=== PATIENT | female | born 1935 | race Caucasian/White ===

== ENCOUNTER 2024-01-17 19:47 | Inpatient (IN) | payer MEDICARE, OTHER, SELFPAY ==
[2024-01-17 17:13] VITALS: BP 162/91; BMI 28.3
[2024-01-17 17:31] LABS: % Eosinophils 8.9 % (0-6); % Immature Granulocytes 0.7 % (0-0.5); % Lymphocytes 16.6 % (20.5-51.1); % Neutrophils 65.8 % (42.2-75.2); Absolute Basophils 0.1 10^3/uL (0-0.2); Absolute Eosinophils 0.9 10^3/uL (0-0.7); Absolute Immature Granulocytes 0.1 10^3/uL (0-0.05); Absolute Lymphocytes 1.7 10^3/uL (1.2-3.4); Absolute Monocytes 0.7 10^3/uL (0.1-0.6); Absolute Neutrophils 6.5 10^3/uL (1.4-6.5); Hematocrit 32.9 % (37.0-47.0); Hemoglobin 10.2 g/dL (12.0-16.0); Mean Corpuscular Volume 90.4 fL (81.0-99.0); Mean Platelet Volume 9.2 fL (7.4-10.4); Nucleated Red Blood Cells % 0 %; Platelet Count 309 10^3/uL (130-400); Red Blood Cell Count 3.64 10^6/uL (4.20-5.40); Red Cell Dist. Width 13.9 % (11.5-14.5); White Blood Cell Count 9.9 10^3/uL (4.8-10.8)
--- NOTE | 2024-01-17 17:40 | ED.GENMED ---
History of Present Illness
General
Chief Complaint: Skin Problem
Time Seen by Provider: 01/17/24 17:40
History of Present Illness
History of Present Illness:
TIME OF INITIAL ENCOUNTER: 5:45 PM
HPI: Patient presents due to concerns for cellulitis to the lower extremities. She had been on Zyvox. The daughter at bedside states that the PMD at [facility] noted worsening of the symptoms and sent her here for further evaluation and
management.
EXAM:
GENERAL: Appears in no distress
HEENT: Moist oral mucosa
CARDIOVASCULAR: Tachycardic heart rate with irregular rhythm
PULMONARY: No respiratory distress, breathing is nonlabored, equal and clear breath sounds
ABDOMEN: Soft and nontender with no peritoneal signs
NEUROLOGIC: The patient has evidence of dementia, not oriented to month or place, strength is equal in all extremities
EXTREMITIES: She has erythema and warmth extending superiorly to the knees bilaterally
PYSCHIATRIC: Very limited historian, poor insight and judgment
NUMBER AND COMPLEXITY OF PROBLEMS ADDRESSED AT THE ENCOUNTER
� Chronic conditions affecting care: Dementia, high blood pressure, hyperlipidemia, CKD, IDDM, skin cancer (had basal cell carcinoma removed)
� Acute Exacerbation and/or Progression of Chronic Illness: This is an acute problem
� Differential Diagnosis includes: Cellulitis, bacteremia, sepsis, failure of outpatient management
AMOUNT AND/OR COMPLEXITY OF DATA TO BE REVIEWED AND ANALYZED
� I performed an independent evaluation of and my interpretation is:
EKG: A-fib 113, normal axis, nonspecific ST abnormality
CT:
X-rays:
Laboratory Studies: White count 9.9, hemoglobin 10.2, creatinine 1.1
Other:
� Review of other/old records: I reviewed records, the patient was admitted with A-fib with RVR in October 2022
� Clinical information was obtained by an independent historian: I reviewed the notes from [facility], the patient had been on Zyvox
� Prescriptions/Medications Considered but not given:
� Further testing considered but not performed:
RISK OF COMPLICATIONS AND/OR MORBIDITY OR MORTALITY OF PATIENT MANAGEMENT
� Social determinants of health affecting care: Resides at [facility]
� Discussion with other providers: Hospitalist for admission as patient has been failing outpatient management
� Escalation of care including admission/observation vs risk of discharge considered: The patient is already on Zyvox as an outpatient and has reportedly worsening lower extremity cellulitis now with progression up above the
knees. White count is normal and she is afebrile however she is tachycardic
ANY OTHER UPDATES:
Given the tachycardia�rapid atrial fibrillation, I have given her a one-time dose of diltiazem. I have also ordered vancomycin.
Past History
Past History
ED Past Medical History: HTN, Hypercholesterolemia, IDDM, Renal failure and Other (Dementia, aphasia)
ED Past Surgical History: None
Social History
Tobacco: Non-smoker
Alcohol: None
Drug: None
Living: half-way
Phy Exam
Physical Exam
Physical Exam:
See HPI
Course
Orders/Labs/Results
Orders:
Orders
01/17/24 17:13
Electrocardiogram (*1) Urgent
Reason for Study: Other
Other Reason for Exam: Possible Sepsis
Cardiac Monitoring- Treatment ONCE
EKG- Treatment ONCE
IV Insert/Care/Rem.- Treatment PRN
O2 Therapy [RESP] Urgent
Titrate/Wean O2 to maintain O2 sat greater than (%): 93
Special Instructions: TO MAINTAIN CONTINUOUS O2 SATS > OR = 93%
Pulse Ox/cont/shift [RESP] Urgent
Quantity: 1
Special Instructions: CONTINUOUS
01/17/24 17:18
Complete Blood Count/With Diff Urgent
Comprehensive Metabolic Panel Urgent
Lactic Acid Q4H
Comment: ON ICE, CANCEL 2ND ORDER IF FIRST LACTIC ACID LEVEL <2
01/17/24 17:53
Diltiazem HCl [Cardizem] 10 mg IV NOW STA
Vancomycin [Vancocin] 2,000 mg 0.9% Sodium Chloride 500 ml [Nss] 500 ml IV NOW
01/17/24 18:22
Blood Culture Q30M
EVY Source: Blood/Venous
Specimen Description:
Blood Culture Q30M
EVY Source: Blood/Venous
Specimen Description:
01/17/24 19:12
Admit/Transfer Patient As Directed
Co-Sign Provider:
Level of Care: Inpatient admission
Assign to:: Telemetry
Physician / Group: hospitalist
Diagnosis: cellulitis
Reason for Telemetry: Medication for Arrhythmia
Date to Stop Telemetry: 01/19/24
Time to Stop Telemetry: 11:00
Reason for Hospitalization: skin and soft tissue infection
Expected length of stay greater than two midnights?: Yes
ELOS- Estimated Length of Stay in days: 2
I certify the patient meets the requirements for IP care: Yes
PRN Pain Medication Management As Directed
May give lesser potent ordered pain med per pt: Yes
preference::
Protocol:: Medication orders for pain may be administered in a
manner that supports deferring to patient preference
when the pt is:
- Requesting an ordered lesser potent pain medication.
Least to most potent pain medications are defined
as: acetaminophen < NSAID < tramadol < opioids
(morphine, oxycodone, hydromorphone).
- Requesting a lesser dose of the same medication IF
ORDERED.
- Requesting a less intrusive route of administration
if both routes are prescribed by the provider (PO <
IV).
01/17/24 19:14
Code Status As Directed
Resuscitation Status: Do not resuscitate
Reached after discussion with pt or family/Healthcare POA: Yes
DNR Bracelet Application ONCE
01/19/24 11:00
DC Protocol for Telemetry ONCE
Abnormal Lab Results
01/17/24
17:18
RBC 3.64 L 10^6/uL
(4.20-5.40)
Hgb 10.2 L g/dL
(12.0-16.0)
Hct 32.9 L %
(37.0-47.0)
MCHC 31.0 L g/dL
(33.0-37.0)
Abs Immat Gran (auto) 0.1 H 10^3/uL
(0-0.05)
Absolute Monos (auto) 0.7 H 10^3/uL
(0.1-0.6)
Absolute Eos (auto) 0.9 H 10^3/uL
(0-0.7)
Immature Gran % 0.7 H %
(0-0.5)
Lymphocytes % 16.6 L %
(20.5-51.1)
Eosinophils % 8.9 H %
(0-6)
BUN 25 H mg/dl
(7-17)
Creatinine 1.1 H mg/dL
(0.6-1.0)
Glucose 247 H mg/dl
(70-99)
AST 37 H U/L
(14-36)
ALT 40 H U/L
(0-35)
Alkaline Phosphatase 169 H U/L
(38-126)
01/17/24 17:18
01/17/24 17:18
Vital Signs
Initial and Last Documented VS:
Initial Vital Signs
Temp Pulse Resp BP Pulse Ox
36.6 C 105 18 162/91 96
01/17/24 17:13 01/17/24 17:13 01/17/24 17:13 01/17/24 17:13 01/17/24 17:13
Last Documented Vital Signs
Temp Pulse Resp BP Pulse Ox
36.6 C 102 20 142/91 96
01/17/24 17:13 01/17/24 19:00 01/17/24 19:00 01/17/24 19:00 01/17/24 19:00
*Critical Care Note
Total Time (30-74mins, 75-104mins- exclusive of procedures): Not Applicable
ED Attending Note
-
Portions of this chart may have been created with voice recognition software.� Occasional wrong word or��sound alike� substitutions may have occurred due to the inherent limitations of voice recognition software.
Discharge Plan
Departure
Patient Disposition: Admit
Date of Disposition: 01/17/24
Time of Disposition: 18:29
Presentation/result/management discussed w/ accepting MD/DO: Hospitalist
Discharge Problem:
Cellulitis
Interventions
Interventions:
*Risk Screen - Suicide Last Done: 01/17/24 17:13
*General Assessment Last Done: 01/17/24 17:13
*Neglect/Abuse Screening Last Done: 01/17/24 17:13
*ED COVID-19 Vaccine History Last Done: 01/17/24 17:13
[2024-01-17 17:45] LABS: ALT (SGPT) 40 U/L (0-35); AST (SGOT) 37 U/L (14-36); Alkaline Phosphatase 169 U/L (38-126); Blood Urea Nitrogen 25 mg/dl (7-17); Calcium 8.9 mg/dl (8.4-10.2); Carbon Dioxide 25 mmol/L (22-30); Chloride 104 mmol/L (98-107); Estimated Creatinine Clearance 36 ml/min; Glucose 247 mg/dl (70-99); Potassium 4.3 mmol/L (3.5-5.1); Sodium 141 mmol/L (135-145); Total Bilirubin 0.4 mg/dl (0.2-1.3); Total Protein 7.1 g/dl (6.3-8.2); eGFR 48.63
[2024-01-17 18:00] VITALS: BP 137/76
[2024-01-17] MEDS: CARDIZEM 10 MG IV (18:21)
--- NOTE | 2024-01-17 18:55 | HPS.HSE ---
Family Physician
-
Family Physician: Jefe Kearney DO
Chief Complaint
-
Bilateral lower extremity swelling and redness.
History of Present Illness
This is 88-year-old female with past medical history significant for insulin-dependent diabetes, atrial fibrillation not currently on anticoagulation due to multiple falls, hypertension, dementia who presents to the emergency department with
bilateral lower extremity cellulitis with failure of outpatient antibiotics.
Patient with dementia unable to provide much history. Sent from assisted. Per records she was started on doxycycline on 01-07 for presumed bilateral lower extremity cellulitis. Initially listed for 5 days but appears to have continued the
course until today when she was switched to linezolid. Unclear whether any doses of linezolid actually received. Family denies history of recurrent hospitalizations for cellulitis. No known animal bites or insect bites. She arrived in ED with
afib RVR, and was afebrile.
In the ED her blood pressure was 162/91 with a pulse of 111, temperature was 97.9 with a respiratory of 18. White count was 9.9 with an unchanged globin and platelet count. ECG with AFIB rate 113, no acute ST / T wave changes. Chemistries were
within normal limits with a BUN of 25 and creatinine of 1.1. Glucose was 242. No anion gap. Lactic acid was 1.0. Given a single dose of diltiazem and started on IV vancomycin.
Medical History
Past Medical History
Past Medical History: Reports Arrhythmia (atrial fibrillation), Dementia, HTN and IDDM
Past Surgical History: Reports Other
Social History
Unable to obtain full social history at this time due to: Dementia
Tobacco: Non-smoker
Alcohol: None
Drug: None
Personal:
Living: [facility]
Employment: Retired
Family History
Family History: Not pertinent
Allergies / Home Medications
Allergies reflects when Allergies were last updated in [employer].
Home Medications with original date entered in [employer]
Allergy/Medication List:
Allergies
Allergy/AdvReac Type Severity Reaction Status Date / Time
Penicillins Allergy Unknown Verified 05/07/19 13:56
Home Medications
acetaminophen 325 mg tablet (Tylenol) 650 mg PO Q6HPRN PRN fever/mild pain 10/17/22
acetaminophen 500 mg tablet (Tylenol Extra Strength) 500 mg PO HS Pain 10/17/22
amlodipine 5 mg tablet 5 mg PO DAILY Blood Pressure 10/17/22
bisacodyl 10 mg rectal suppository (Dulcolax (bisacodyl)) 10 mg TN DAILYPRN PRN if no bm after mom 10/17/22
donepezil 10 mg tablet 10 mg PO HS Neurological Condition 10/17/22
insulin lispro 100 unit/mL subcutaneous pen (Humalog KwikPen (U-100) Insulin) 0 sliding scale dose SC AC Diabetes 10/17/22
magnesium hydroxide 400 mg/5 mL oral suspension (Milk of Magnesia) 2,400 mg PO [id number] PRN if no bm by third day 10/17/22
sodium phosphates 19 gram-7 gram/118 mL enema (Fleet Enema) 118 ml TN DAILYPRN PRN if no bm after dulcolax 10/17/22
therapeutic multivitamin 1 tab PO DAILY Supplement 10/17/22
ferrous sulfate 325 mg (65 mg iron) tablet (FeroSul) 325 mg PO DAILY 30 days #30 tabs 10/20/22
aspirin 81 mg tablet,delayed release 81 mg PO DAILY 01/17/24
insulin glargine 100 unit/mL (3 mL) subcutaneous pen (Lantus Solostar U-100 Insulin) 18 unit SC HS 01/17/24
metoprolol tartrate 25 mg tablet 25 mg PO QPM 01/17/24
Review of Systems
-
Unable to obtain full review of systems at this time due to: Dementia
History Source: Family
Constitutional: Reports No Symptoms
EENT: Reports No Symptoms
Respiratory: Reports No Symptoms
Cardiac: Reports No Symptoms
Abdomen/GI: Reports No Symptoms
: Reports No Symptoms
Musculoskeletal: Reports No Symptoms
Skin: Reports No Symptoms
Neurological: Reports No Symptoms
Endocrine: Reports No Symptoms
Hematologic/Lymphatic: Reports No Symptoms
Psych: Reports No Symptoms
Physical Exam
Vital Signs
Vital Signs
Temp Pulse Resp BP Pulse Ox
97.9 F 111 18 162/91 95
01/17/24 17:13 01/17/24 17:15 01/17/24 17:15 01/17/24 17:13 01/17/24 17:15
Physical Exam
General: Well Developed, Well Nourished, Comfortable and Conversant
HEENT: NormoCephalic, Anicteric, Moist mucous membranes and Atraumatic
Respiratory: Clear
Cardiac: S1/S2, Irregular Rhythm and Tachycardia
Breast: Deferred by me
GI: Soft, Non Tender, Normal Bowel Sounds and No Hepatosplenomegaly
Rectal: Deferred by Provider
Genito-urinary: Deferred by me
Musculoskeletal: No Clubbing, No Cyanosis, Edema, Left Lower Extremity and Edema, Right Lower Extremity
Skin: Warm and Rash (Bilateral LE erythema, edema and TTP. No focal collection. )
Neuro: Awake, Alert and Oriented (to person, knowns she's in the hospital and has been here before, aware year is the '20 somethings')
Hematologic/Lymphatic: No Lymphadenopathy
Psych: Calm
Laboratory Results
-
01/17/24 17:18
01/17/24 17:18
Laboratory Results
Lactic Acid Cancelled 01/17/24 21:15
Total Bilirubin 0.4 mg/dl (0.2-1.3) 01/17/24 17:18
AST 37 U/L (14-36) H 01/17/24 17:18
ALT 40 U/L (0-35) H 01/17/24 17:18
Alkaline Phosphatase 169 U/L (38-126) H 01/17/24 17:18
Data Reviewed
-
Medical Tests (Nuc Med, Echo, EKG etc): Image Personally Visualized and interpreted
Lab Data: Labs Reviewed by me
Old Records: Reviewed
Impression/Plan
-
IMPRESSION:
88 y.o with h/o diabetes here with failure of outpatient treatment for john LE cellulitis and with AFIB RVR.
PLAN:
1. Cellulitis - On abx since 01/07. History says doxycycline then linezolid started today. Extensive erythema in the legs with induration and tenderness to palpation. Nails and some skin excoriations possibly source. No obvious ulcerations or
evidence of deep tissue infection.
- admit to telemetry
- IV vancomycin for now
- blood cultures if febrile
- ID consultation
- bilateral LE u/s to rule out DVT (less likely but remains in differential)
2. AFIB - AFIB RVR in setting of worsening infection. Rate controlled with 10mg iv diltiazem
- continue metoprolol 25mg q pm
- prn diltiazem iv for rates > 120
- not on AC due to falls, continue aspirin 81
3. DM II - hyperglycemia, no DKA
- lantus 18 hs
- sliding scale achs
- 500 ml NS x1
4. Dementia
- continue donepezil
DVT PPX - heparin sq
Code status - DNR
[2024-01-17 19:00] VITALS: BP 142/91
[2024-01-17] MEDS: VANCOCIN 540 MG IV (20:53)
[2024-01-17] MEDS: NSS 500 IV (20:54)
[2024-01-17 20:58] VITALS: BP 165/78; BMI 28.4
--- NOTE | 2024-01-17 20:59 | PHA.VAN.IN ---
Assessment
- Assessment
Renal Function: Appears elevated from baseline (10/20/22 BASELINE SCR: 1.0)
Concomitant Antimicrobials: NONE
- Previous Dosing Experience
Previous Regimen: NONE
AUC Dosing Plan
- Dosing Variables
Dosing Weight (kg): 74.7
Dosing CrCl (ml/min): 36
Vd coefficient (L/kg): 0.7
- Empiric Dosing
Initial / Loading Dose: 2GM
Maintenance Regimen: 750MG IV Q24H
Estimated AUC (mcg*h/mL): 426
Estimated Peak (mcg*h/mL): 25.6
Estimated Trough (mcg/ml): 11.6
Estimated Half Life (H): 20.2
Pharmacokinetics Vancomycin I
- -
Patient Age: 88
Patient Sex: Female
Vancomycin Day #: 1
Indication: Skin And Soft Tissue (B\\L LLE CELLULITIS)
Requesting Provider: SUE
Pertinent Antimicrobial Allergies:
Allergies
Penicillins Allergy (Verified 01/17/24 19:13)
Unknown
Height / Weight:
Height 5 ft 4 in
Actual Weight 74.871 kg
Pertinent Past Medical History: DM; FAILED OUTPT TX W/DOXYCYCLINE/LINEZOLID
- Vital Signs / Lab Results
Temp Pulse Resp BP Pulse Ox
97.6 F 97 18 165/78 96
01/17/24 20:58 01/17/24 20:58 01/17/24 20:58 01/17/24 20:58 01/17/24 20:58
Lab Results - Hematology
01/17/24
17:18
WBC 9.9
Lab Results - Chemistry
01/17/24
17:18
BUN 25 H
Creatinine 1.1 H
Estimated Creat Clear 36
Albumin 4.0
12/05/24 12/05/24
17:18 21:15
Lactic Acid 1.0 Cancelled
--- NOTE | 2024-01-17 21:00 | PTCARENOTE ---
Patient admitted from ED. Patient AAO x1, forgetful, with hx of dementia, on RA. Bed alarm is on. Patient has call douglas within reach.
[2024-01-17] MEDS: ARICEPT 10 MG PO (21:01)
[2024-01-17 21:15] LABS: Glucose - Point of Care 222 mg/dl (70-99)
[2024-01-17] MEDS: TYLENOL 650 MG PO (21:30)
[2024-01-17] MEDS: LOPRESSOR 25 MG PO (21:30)
[2024-01-17] MEDS: LANTUS 0.18 UNITS SC (22:20)
[2024-01-17 23:21] VITALS: BP 153/64
--- NOTE | 2024-01-18 00:16 | PTCARENOTE ---
Patient woke up confused, bed alarm activated, patient stating 'I can't breathe.' Patient placed on 2LNC sating 94%, RR 20, HR 85. Patient has hx dementia and is anxious. Placed on medsitter. Patient is now more calm and resting in bed comfortably.
Will continue to monitor.
[2024-01-18] MEDS: DUONEB 3 ML INH (02:44)
[2024-01-18 03:38] VITALS: BP 122/92
[2024-01-18] MEDS: LASIX 20 MG IV ×2 (04:10→13:37)
--- NOTE | 2024-01-18 04:47 | W.PN.UPDATE ---
Update Note
Progress Note Update
Per nursing new onset wheezing with diminished lungs. 86-87% on RA. Rx Duoneb - minimal improvement, continues to remain SOB and wheezing, saturating 99 on 2L.�
Rx CXR - Discussed with Dr. Nunez -�possible right pleural effusion. Rx 20mg IV Lasix - patient reports improved symptoms.
[2024-01-18] MEDS: VANCOCIN 150 IV (05:32)
[2024-01-18 05:33] VITALS: BMI 28.2
[2024-01-18 07:00] VITALS: BP 160/72
[2024-01-18 07:53] LABS: Hematocrit 31.9 % (37.0-47.0); Mean Corp Hgb Conc. 31.3 g/dL (33.0-37.0); Mean Corpuscular Hgb 28.4 pg (27.0-31.0); Mean Corpuscular Volume 90.6 fL (81.0-99.0); Mean Platelet Volume 9.3 fL (7.4-10.4); Platelet Count 305 10^3/uL (130-400); Red Blood Cell Count 3.52 10^6/uL (4.20-5.40); Red Cell Dist. Width 14.1 % (11.5-14.5); White Blood Cell Count 9.9 10^3/uL (4.8-10.8)
[2024-01-18 08:16] LABS: NT-proBNP 3610 pg/ml
[2024-01-18 08:40] LABS: Glucose - Point of Care 185 mg/dl (70-99)
[2024-01-18 08:47] LABS: Blood Urea Nitrogen 20 mg/dl (7-17); Calcium 8.4 mg/dl (8.4-10.2); Carbon Dioxide 26 mmol/L (22-30); Chloride 106 mmol/L (98-107); Estimated Creatinine Clearance 39 ml/min; Glucose 218 mg/dl (70-99); Potassium 4.6 mmol/L (3.5-5.1); Sodium 140 mmol/L (135-145); eGFR 54.53
[2024-01-18] MEDS: FEOSOL 325 MG PO (08:55)
[2024-01-18] MEDS: ASPIR LOW (ENTERIC COATED) 81 MG PO (08:55)
[2024-01-18] MEDS: NOVOLOG FLEXPEN-MODERATE RESISTANCE 1 UNITS SC (08:55)
[2024-01-18] MEDS: NORVASC 5 MG PO (08:55)
[2024-01-18 11:00] VITALS: BP 159/66
--- NOTE | 2024-01-18 11:04 | CON.ID ---
Consultation
-
Date/Time Consultation Requested: January 18, 2024 0229
Date/Time Consultation Performed: January 18, 2024 1100
Requesting Provider: Dr. Dami Robledo
Performing Provider: Dr. Kathrin Caputo
Reason for Consultation: Cellulitis
Chief Complaint / Past History
Chief Complaint
Both legs swelling and redness
History of Present Illness
88-year-old female with history of diabetes mellitus, atrial fibrillation, dementia who presented from long-term facility on January 16 due to progressive bilateral lower extremity edema and erythema. January 07 she was placed on doxycycline
without improvement. She was therefore sent to the hospital. Afebrile. Normal white count. Blood pressure elevated. Tachycardic. Patient A-fib with RVR. She is currently on vancomycin. Patient reports no fevers or chills. Today the legs
swelling and redness are much much improved. She feels well overall.
Past History
Additional Past Medical History:
Dementia
Hypertension
Diabetes mellitus
Atrial fibrillation
Allergy History:
Penicillins Allergy (Verified 01/17/24 19:13)
Unknown
Medications Reviewed: Yes
Current Antibiotics:
Vancomycin
Social History
Tobacco: Non-Smoker
Alcohol: None
Drug: None
Living: Jail
Family History
Family History: Not Pertinent
Review of Systems
Review of Systems
General: Negative Fever, Chills or Change in Appetite
Cardiovascular: Negative Chest Pain
Respiratory: Dyspnea (wheezing this morning.)
Gasteroenterology: Negative Nausea, Vomiting or Diarrhea
Genital / Urological: Negative Dysuria or Flank Pain
Endocrine: Negative Weakness
Neurological: Negative Dizziness
All systems: All other systems were reviewed and were negative
Vital Signs
Temp Pulse Resp BP Pulse Ox
97.8 F 63 18 160/72 93
01/18/24 07:00 01/18/24 08:55 01/18/24 07:00 01/18/24 08:55 01/18/24 07:00
Physical Exam
Physical Exam
Constitutional: No Acute Distress, Comfortable and Non-toxic
Eyes: No Conjunctival Hemorrhage and Sclera Anicteric
Cardiovascular: Regular Rate and S1/S2
Pulmonary: Rales (bibase)
Gastrointestinal: Non Tender and Normal Bowel Sounds
Extremities: Edema (BLE 1+ edema), Erythema (BLE minimal erythema improve with leg raisng) and Other (BLE skin very dry. Right lateral calf with superficial dry wound.)
Neurological: Awake and Alert
Lab / Diagnostic Study Results
01/18/24 07:19
01/18/24 07:19
Abs Immat Gran (auto) 0.1 10^3/uL (0-0.05) H 01/17/24 17:18
Absolute Neuts (auto) 6.5 10^3/uL (1.4-6.5) 01/17/24 17:18
Absolute Lymphs (auto) 1.7 10^3/uL (1.2-3.4) 01/17/24 17:18
Absolute Monos (auto) 0.7 10^3/uL (0.1-0.6) H 01/17/24 17:18
Absolute Basos (auto) 0.1 10^3/uL (0-0.2) 01/17/24 17:18
Immature Gran % 0.7 % (0-0.5) H 01/17/24 17:18
Neutrophils % 65.8 % (42.2-75.2) 01/17/24 17:18
Lymphocytes % 16.6 % (20.5-51.1) L 01/17/24 17:18
Monocytes % 7.0 % (1.7-9.3) 01/17/24 17:18
Eosinophils % 8.9 % (0-6) H 01/17/24 17:18
Basophils % 1.0 % (0-2) 01/17/24 17:18
Lactic Acid Cancelled 01/17/24 21:15
Microbiology Results
Micro:
01/17/24 21:04 Nasal Screen MRSA (PCR) - Pending
Nose
01/17/24 18:22 Blood Culture - Pending
Blood/Venous
01/17/24 18:22 Blood Culture - Pending
Blood/Venous
01/18/24 CXR: Cardiomegaly. Diffusely increased interstitial markings, most suggestive of interstitial pulmonary edema.
Assessment / Plan
# BLE edema/erythema due to acute CHF
- Improving after a dose of furosemide IV x 1
-NO evidence of cellulitis. BLE dependent erythema resolves with leg elevation.
-DC VANCOMYCIN.
- Elevate LE's.
-Moisturize dry skin
# Pulm edema/CHF
- CXR cardiomegaly with interstitial edema
-Management as per hospitalist.
ID will sign off.
--- NOTE | 2024-01-18 13:09 | W.PN.HOSP.TC ---
Today's Communication/Plan
-
Cardiology count
Assessment / Plan
Assessment / Plan
Impression.
87 years old who admitted for bilateral lower extremity cellulitis developed shortness of breath last night, seen by infectious disease, discontinued antibiotic and recommend treatment for CHF.
Assessment/plan
Acute CHF Exacerbation:
Patient has acute on chronic diastolic congestive heart failure
Patient presented with shortness of breath.
BNP level is elevated at 3610
Received one-time dose of Lasix 20 mg IV which shows improvement
Continue Daily weight.
Continue strict I's and O's.
Consulted cardiology.
Most recent echo done on 10/18/2022 shows :
Normal left ventricular size, wall thickness and systolic function. No regional
wall motion abnormalities are seen. LV ejection fraction is 55-60% by visual
assessment. Diastolic function indeterminate due to atrial fibrillation.
Normal right ventricular size and function.
Thickened mitral valve leaflets. Mitral annular calcification. Mild mitral
regurgitation.
Aortic sclerosis without stenosis. Mild aortic regurgitation.
Mild tricuspid regurgitation. Estimated pulmonary artery pressure of 35-40 mmHg
assuming a right atrial pressure of 3 mmHg.
No prior study available for comparison
Repeat echocardiogram pending.
Ordered Lasix 20 mg IV daily
Cellulitis ruled out.
- On abx since 01/07. History says doxycycline then linezolid started today. Extensive erythema in the legs with induration and tenderness to palpation. Nails and some skin excoriations possibly source. No obvious ulcerations or evidence of deep
tissue infection.
Seen by infectious disease.
Recommend to discontinue IV antibiotic
- bilateral LE u/s to rule out DVT (pending)
Atrial fibrillation with rapid ventricular rate.
Rate controlled with 10mg iv diltiazem
- continue metoprolol 25mg q pm
- prn diltiazem iv for rates > 120
- not on AC due to falls, continue aspirin 81
History of diabetes mellitus
Continue home medication
lantus 18 hs
Insulin sliding scale
Diabetic diet
Hemoglobin A1c 8.7 on 10/18/2022, will repeat
Dementia
- continue donepezil
Code status - DNR
DVT prophylaxis: Heparin
Diet: Regular diet
I spent 65 minutes giving direct care to the patient including chart review, talking to consultants, talking to treatment team, family communication.
Anticipated Discharge: > 48 hours
Subjective/Interval History
-
Date of Service: January 18, 2024
Patient seen and examined at bedside.
Cannot provide interval history.
Seen by infectious disease recommend to discontinue antibiotic.
Consult cardiology for CHF
Objective Data
-
Labs:
Laboratory Results
01/18/24
07:19
WBC 9.9
Hgb 10.0 L
Hct 31.9 L
Plt Count 305
Sodium 140
Potassium 4.6
Chloride 106
Carbon Dioxide 26
BUN 20 H
Creatinine 1.0
Glucose 218 H
Calcium 8.4
Vital Signs:
Vital Signs
Temp Pulse Resp BP Pulse Ox
98.5 F 59 18 159/66 94
01/18/24 11:00 01/18/24 11:00 01/18/24 11:00 01/18/24 11:00 01/18/24 11:00
I&O
01/17/24 01/18/24 01/19/24
06:59 06:59 06:59
Intake Total 240 / 240
Balance 240 / 240
Physical Exam
-
General: Well Developed
HEENT: Normocephalic, Atraumatic, Moist Mucous Membranes, No Ptosis, PERRLA and Nose Appears Normal
Respiratory: Clear to Auscultation and Non Labored Respirations
Cardiac: Regular Rhythm and S1/S2
Breast: Deferred by me
GI: Soft, Nontender, Nondistended and Normal Bowel Sounds
Genito-urinary: No Costovertebral Tender
Musculoskeletal: Edema, Right Upper Extrem and Edema, Left Upper Extrem
Skin: Other (Bilateral lower extremity redness)
Neuro: Awake, Alert, Oriented, AO x 3 and No Motor Deficits
Psych: Calm and Confused
Data Reviewed
-
Diagnostic Radiology: Image personally visualized and interpreted and Report Reviewed by me
CT Scan: Image personally visualized and interpreted and Report Reviewed by me
Ultrasound: Image personally visualized and interpreted and Report Reviewed by me
MRI: Image personally visualized and interpreted and Report Reviewed by me
Medical Tests (Nuc Med, Echo etc): Image personally visualized and interpreted and Report Reviewed by me
Labs: Labs Reviewed by me
Old Records: Reviewed
--- NOTE | 2024-01-18 13:28 | CON.CAR ---
Addendum entered and electronically signed by Daniela Juares MD 01/18/24 15:56:
I saw and examined the patient.
The Cook [employer] Technician's note was reviewed and I agree with the note.
Comment: Patient is a 88year old female with T2DM, HTN, HLD, dementia, prior falls, pAF not on AC due to falls and dementia who presents with ongoing LE edema initially thought to be secondary to cellulitis s/p abx without significant improvement
with concern for possible acute exacerbaiton of HFpEF in setting of AF with RVR on presentation.
Vitals and lab reviewed. ProBNP 3610. CXR with concern for pulm edema. Echo reviewed from today with preserved LV function, no significant pericardial effusion, pulm HTN, pleural effusion noted.
Reccs:
1. Agree with IV diuresis with goal net negative daily. Stricts ins and outs. Replete lytes as needed. Monitor renal function closely.
2. Toprol XL to start given pAF. Not deemed an AC candidate given frequent falls, anemia and dementia. Not watchman candidate given advanced age and dementia.
3. Cont conservative and support therapy otherwise.
Daniela Juares MD, [facility], [facility]
Original Note:
Consultation
Consultation Request
Date/Time Consultation Requested: 01/18/2024
Date/Time Consultation Performed: 01/18/2024
Requesting Provider: Dr. Lomax
Performing Provider: Radha Jim PA-C for Dr. Juares
Reason for Consultation: Lower extremity edema, heart failure
Medical History
-
History of Present Illness:
Patient is an 88 yof female w/ past medical history of diabetes, hypertension, hyperlipidemia, dementia with sundowning, history of falls and paroxysmal atrial fibrillation not on OAC due to family choice and risk of falls who presented from
[facility] with complaints of persistent lower extremity edema despite outpatient antibiotics. Per review of medical records patient had been on doxycycline without improvement of edema and erythema. On arrival to emergency
department patient was found to be in atrial fibrillation with accelerated ventricular response. AST/ALT mildly elevated at 37/40. She was given IV diltiazem and vancomycin in emergency department. Patient was seen by infectious disease morning of
01/18/2024 who felt edema was likely more heart failure related and not from cellulitis. Chest x-ray was performed 01/18/2024 which demonstrated diffusely increased interstitial markings suggestive of interstitial pulmonary edema. proBNP was found
to be elevated at 3610. Given concern for acute heart failure cardiology being consulted.
Daughter, Alnea is POA. Patient has h/o progressive dementia with hallucinations and sundowning.
PMH:
Paroxysmal atrial fibrillation
Frequent falls/ambulatory dysfunction
Hypertension
Insulin-dependent diabetes
Hyperlipidemia
Dementia with sundowning
basal cell skin cancer w/ excision
Past Medical History
Past Medical History: Other (See HPI)
Past Surgical History: Other (Skin CA removal)
Social History
Tobacco: Former Smoker
Alcohol: None
Drug: None
Living: Assisted (dementia unit)
Family History
Family History: Reviewed & Not Pertinent
Allergies / Home Medications
Allergy/AdvReac Type Severity Reaction Status Date / Time
Penicillins Allergy Unknown Verified 01/17/24 19:13
�Medication �Instructions �Recorded �Confirmed �Type
acetaminophen 325 mg tablet 650 mg PO Q6HPRN PRN fever/mild 10/17/22 01/17/24 History
(Tylenol) pain
acetaminophen 500 mg tablet 500 mg PO HS Pain 10/17/22 01/17/24 History
(Tylenol Extra Strength)
amlodipine 5 mg tablet 5 mg PO DAILY Blood Pressure 10/17/22 01/17/24 History
bisacodyl 10 mg rectal suppository 10 mg AK DAILYPRN PRN if no bm 10/17/22 01/17/24 History
(Dulcolax (bisacodyl)) after mom
donepezil 10 mg tablet 10 mg PO HS Neurological Condition 10/17/22 01/17/24 History
insulin lispro 100 unit/mL 0 sliding scale dose SC AC Diabetes 10/17/22 01/17/24 History
subcutaneous pen (Humalog KwikPen
(U-100) Insulin)
magnesium hydroxide 400 mg/5 mL 2,400 mg PO [id number] PRN if no bm 10/17/22 01/17/24 History
oral suspension (Milk of Magnesia) by third day
sodium phosphates 19 gram-7 118 ml AK DAILYPRN PRN if no bm 10/17/22 01/17/24 History
gram/118 mL enema (Fleet Enema) after dulcolax
therapeutic multivitamin 1 tab PO DAILY Supplement 10/17/22 01/17/24 History
ferrous sulfate 325 mg (65 mg 325 mg PO DAILY 30 days #30 tabs 10/20/22 01/17/24 Rx
iron) tablet (FeroSul)
aspirin 81 mg tablet,delayed 81 mg PO DAILY 01/17/24 01/17/24 History
release
insulin glargine 100 unit/mL (3 18 unit SC HS 01/17/24 01/17/24 History
mL) subcutaneous pen (Lantus
Solostar U-100 Insulin)
metoprolol tartrate 25 mg tablet 25 mg PO QPM 01/17/24 01/17/24 History
Review of Systems
-
History Source: Patient
All other systems: Negative unless noted
Physical Exam
Vital Signs
Temp Pulse Resp BP Pulse Ox
98.5 F 59 18 159/66 94
01/18/24 11:00 01/18/24 11:00 01/18/24 11:00 01/18/24 11:00 01/18/24 11:00
GEN: No distress, awake, pleasantly demented
HEENT: supple, anicteric
LUNGS: Decreased breath sounds at bilateral bases left greater than right CTA, no wheezes/rales; currently on 2 L of oxygen via nasal cannula
CV: Regular rate and rhythm, S1/S2, no murmur, rubs or gallops
ABD: soft, BS+, NT/ND
EXT: Erythema noted on both lower extremities, +1 bilateral lower extremity edema nonpitting and hard consistent with chronic venous stasis, right dorman with 2 inch abrasion type wound
NEURO: pleasantly demented, poor historian, otherwise nonfocal
SKIN: No rash, warm, dry, pink
Lab Results
01/18/24 07:19
01/18/24 07:19
Snb-K-Xwmyhrxrcdu Pept 3610 pg/ml 01/18/24 07:19
Impression / Plan
-
PCP: Jefe Kearney,
Engraver Flatware: None prior to admission, Initially seen Dr. Wild
Impression:
Presented 01/17/2024 with lower extremity edema and erythema
Acute heart failure with reduced ejection fraction, proBNP 3610
Paroxysmal atrial fibrillation w/ RVR
Paroxysmal atrial fibrillation
Frequent falls/ambulatory dysfunction
Hypertension
Insulin-dependent diabetes
Hyperlipidemia
Dementia with sundowning
Echo 01/18/2024: Pending
ECHO 10/18/22: EF 55-60%, MAC, mild MR, aortic sclerosis, mild AR, mild TR, PAP 35-40mmHg
Plan:
-Presents 01/18/2024 from [facility] with lower extremity edema and erythema not responding to outpatient oral antibiotics.
-Acute heart failure with preserved ejection fraction, proBNP 3610. Chest x-ray consistent with heart failure/pulmonary edema
-Patients weight is 20 pounds higher on admission then patient's weight 6 months ago in cardiology office, was 142 lb 07/2023, now 164 lbs if scale correct
-Agree with IV diuresis. Patient has received 40 mg IV Lasix 01/18/2024. Monitor and assess response. Currently ordered 20 mg IV Lasix starting 01/19/2024. Patient may require higher dose pending response
-Would check echocardiogram
Paroxysmal atrial fibrillation with rapid ventricular
-Converted to sinus rhythm with IV diltiazem. Per review of telemetry patient continues to have paroxysms/short runs of atrial fibrillation. However when in sinus rhythm patient has bradycardia.
-Stop Lopressor 25 mg once a day and transition to Toprol 25 mg once a day for better 24-hour coverage
-[id number] score 5 (age +2, female +1, hypertension +1, diabetes +1). Patient has history of frequent falls and dementia. Many prior conversations with daughter, Alena, regarding anticoagulation. Decision previously has been to continue with
aspirin and not initiate oral anticoagulation.
-History of hypertension and takes amlodipine as outpatient. This may be also contributing to her edema. Could consider transitioning to EVY/ARB in place of amlodipine
PT/OT due to fall risk
HPI :
Patient is an 88 yof female w/ past medical history of diabetes, hypertension, hyperlipidemia, dementia with sundowning, history of falls and paroxysmal atrial fibrillation not on OAC due to family choice and risk of falls who presented from
[facility] with complaints of persistent lower extremity edema despite outpatient antibiotics. Per review of medical records patient had been on doxycycline without improvement of edema and erythema. On arrival to emergency
department patient was found to be in atrial fibrillation with accelerated ventricular response. AST/ALT mildly elevated at 37/40. She was given IV diltiazem and vancomycin in emergency department. Patient was seen by infectious disease morning of
01/18/2024 who felt edema was likely more heart failure related and not from cellulitis. Chest x-ray was performed 01/18/2024 which demonstrated diffusely increased interstitial markings suggestive of interstitial pulmonary edema. proBNP was found
to be elevated at 3610. Given concern for acute heart failure cardiology being consulted.
Daughter, Alena is CARLYN. Patient has h/o progressive dementia with hallucinations and sundowning.
Data Reviewed
-
EKG: Report Reviewed by me, Discussed with Physician, Discussed with Patient and Discussed with Family
Radiology: Report Reviewed by me, Discussed with Physician, Discussed with Patient and Discussed with Family
Labs: Labs Reviewed by me, Discussed with Physician, Discussed with Patient and Discussed with Family
Old Records: Reviewed
[2024-01-18 13:33] LABS: Glucose - Point of Care 242 mg/dl (70-99)
[2024-01-18] MEDS: NOVOLOG FLEXPEN-MODERATE RESISTANCE 3 UNITS SC (13:34)
[2024-01-18] MEDS: HYDROPHOR 1 APPLIC TOPICAL (13:36)
[2024-01-18 15:00] VITALS: BP 127/83
[2024-01-18 16:56] LABS: Glucose - Point of Care 202 mg/dl (70-99)
--- NOTE | 2024-01-18 17:08 | CM ---
Reviewed chart. Prior to admission Mrs. Al was a resident of [facility]. She has a 15 medical assistance bed hold. Prior to admission she was able to ambulates independently and adls independently. Medical work-up in
progress. The discharge plan is to return to [facility] when medically stable.
[2024-01-18] MEDS: NOVOLOG FLEXPEN-MODERATE RESISTANCE SC (17:40)
[2024-01-18] MEDS: LOVENOX SC (17:40)
[2024-01-18 19:55] VITALS: BP 153/91
[2024-01-18 21:35] LABS: Glucose - Point of Care 167 mg/dl (70-99)
[2024-01-18] MEDS: LANTUS 0.18 UNITS SC (21:37)
[2024-01-18] MEDS: ARICEPT 10 MG PO (21:37)
[2024-01-18 23:45] VITALS: BP 169/78
[2024-01-19 03:34] VITALS: BP 136/86
[2024-01-19 06:00] VITALS: BMI 27.1
[2024-01-19 07:26] LABS: Glucose - Point of Care 110 mg/dl (70-99)
[2024-01-19 07:26] LABS: Hematocrit 31.1 % (37.0-47.0); Mean Corp Hgb Conc. 32.2 g/dL (33.0-37.0); Mean Corpuscular Hgb 29.1 pg (27.0-31.0); Mean Corpuscular Volume 90.4 fL (81.0-99.0); Mean Platelet Volume 9.3 fL (7.4-10.4); Platelet Count 309 10^3/uL (130-400); Red Blood Cell Count 3.44 10^6/uL (4.20-5.40); Red Cell Dist. Width 14.2 % (11.5-14.5); White Blood Cell Count 9.7 10^3/uL (4.8-10.8)
[2024-01-19 07:30] VITALS: BP 122/78
[2024-01-19 07:47] LABS: Blood Urea Nitrogen 18 mg/dl (7-17); Calcium 8.8 mg/dl (8.4-10.2); Carbon Dioxide 29 mmol/L (22-30); Chloride 106 mmol/L (98-107); Estimated Creatinine Clearance 35 ml/min; Glucose 104 mg/dl (70-99); Potassium 4.4 mmol/L (3.5-5.1); Sodium 144 mmol/L (135-145); eGFR 48.63
[2024-01-19] MEDS: NORVASC 5 MG PO (08:49)
[2024-01-19] MEDS: ASPIR LOW (ENTERIC COATED) 81 MG PO (08:49)
[2024-01-19] MEDS: FEOSOL 325 MG PO (08:49)
[2024-01-19] MEDS: LASIX 20 MG IV (08:49)
[2024-01-19] MEDS: NOVOLOG FLEXPEN-MODERATE RESISTANCE SC (08:49)
--- NOTE | 2024-01-19 09:30 | PTCARENOTE ---
Addendum entered by Hima Garcia RN 01/19/24 15:10:
At 1055 sinus rhythm on the monitor.
Original Note:
At 0900 heart rate noted to be in 110s to 120s, occasionally in 130s, afib on telemetry. EKG done confirming afib. Pt resting in bed. Dr Robertson made aware. Cardiology adjusted Toprol dosing. 25mg PO given. Will continue to monitor.
[2024-01-19] MEDS: HYDROPHOR 1 APPLIC TOPICAL (09:34)
[2024-01-19] MEDS: LOPRESSOR 25 MG PO ×2 (09:34→21:14)
[2024-01-19 11:33] VITALS: BP 112/58
--- NOTE | 2024-01-19 12:05 | W.PN.HOSP.TC ---
Today's Communication/Plan
-
Monitor vital signs see plan
Continue with diuresis
Continue metoprolol
Monitor A-fib
Assessment / Plan
Assessment / Plan
Impression.
87 years old who admitted for bilateral lower extremity cellulitis developed shortness of breath last night, seen by infectious disease, discontinued antibiotic and recommend treatment for CHF.
Assessment/plan
Acute on chronic diastolic congestive heart failure
Patient presented with shortness of breath.
BNP level is elevated at 3610
Responding well to IV diuresis, continue with IV diuresis
Continue Daily weight.
Continue strict I's and O's.
Cardiology following
Repeat echo with preserved EF
Cellulitis ruled out.
- On abx since 01/07. History says doxycycline then linezolid started today. Extensive erythema in the legs with induration and tenderness to palpation. Nails and some skin excoriations possibly source. No obvious ulcerations or evidence of deep
tissue infection.
Seen by infectious disease.
Recommend to discontinue IV antibiotic
- bilateral LE u/s neg for DVT
Atrial fibrillation with rapid ventricular rate.
hx of pAF
Now on metoprolol 25 twice daily
- prn diltiazem iv for rates > 120
- not on AC due to falls, continue aspirin 81
History of diabetes mellitus
Continue home medication
lantus 18 hs
Insulin sliding scale
Diabetic diet
Hemoglobin A1c 8.7
Dementia
- continue donepezil
Code status - DNR
DVT prophylaxis: Heparin
General: Well Developed
HEENT: Normocephalic, Atraumatic, Moist Mucous Membranes, No Ptosis, PERRLA and Nose Appears Normal
Respiratory: Clear to Auscultation and Non Labored Respirations
Cardiac: Regular Rhythm and S1/S2
GI: Soft, Nontender, Nondistended and Normal Bowel Sounds
Genito-urinary: No Costovertebral Tender
Musculoskeletal: Edema, Right Upper Extrem and Edema, Left Upper Extrem
Skin: Other (Bilateral lower extremity redness)
Neuro: Awake, Alert, Oriented, AO x 3 and No Motor Deficits
Psych: Calm and Confused
Anticipated Discharge: 24 - 48 hours
Subjective/Interval History
-
Date of Service: January 19, 2024
denies pain
Objective Data
-
Labs:
Laboratory Results
01/19/24
06:56
WBC 9.7
Hgb 10.0 L
Hct 31.1 L
Plt Count 309
Sodium 144
Potassium 4.4
Chloride 106
Carbon Dioxide 29
BUN 18 H
Creatinine 1.1 H
Glucose 104 H
Calcium 8.8
Vital Signs:
Vital Signs
Temp Pulse Resp BP Pulse Ox
97.2 F 66 18 112/58 93
01/19/24 11:33 01/19/24 11:33 01/19/24 11:33 01/19/24 11:33 01/19/24 11:33
I&O
01/18/24 01/19/24 01/20/24
06:59 06:59 06:59
Intake Total 240 / 240 120 / 120
Balance 240 / 240 120 / 120
[2024-01-19 12:12] LABS: Glucose - Point of Care 198 mg/dl (70-99)
[2024-01-19] MEDS: NOVOLOG FLEXPEN-MODERATE RESISTANCE 1 UNITS SC ×2 (12:32→17:23)
[2024-01-19 13:17] LABS: Magnesium 2.2 mg/dl (1.6-2.3)
--- NOTE | 2024-01-19 14:03 | W.PN.CARDCBS ---
Today's Communication / Plan
-
Gentle IV diuresis
Stop amlodipine as this may be contributing to her lower extremity edema
Impression / Plan
-
PCP: Jefe Kearney DO
Gaming Surveillance Observer: None prior to admission, Initially seen Dr. Wild
Impression:
Presented 01/17/2024 with lower extremity edema and erythema
Acute heart failure with preserved ejection fraction, proBNP 3610
Paroxysmal atrial fibrillation w/ RVR
Paroxysmal atrial fibrillation
Frequent falls/ambulatory dysfunction
Hypertension
Insulin-dependent diabetes
Hyperlipidemia
Dementia with sundowning
Echo 01/18/2024: EF 55-60%, MAC, aortic sclerosis, mild TR, PASP 50-55 mmHg
ECHO 10/18/22: EF 55-60%, MAC, mild MR, aortic sclerosis, mild AR, mild TR, PAP 35-40mmHg
Plan:
-Presents 01/18/2024 from [facility] with lower extremity edema and erythema not responding to outpatient oral antibiotics.
#Acute heart failure with preserved ejection fraction
-proBNP 3610. Chest x-ray consistent with heart failure/pulmonary edema
-Patients weight is 20 pounds higher on admission then patient's weight 6 months ago in cardiology office, was 142 lb 07/2023, now 164 lbs if scale correct
-Preserved LVEF on echocardiogram
-Agree with IV diuresis. Rec 40 mg IV Lasix once daily
-Plan to transition to PO lasix 20mg daily when more euvolemic, suspect she will need additional 24-48hrs
-History of hypertension and takes amlodipine as outpatient. Stop amlodipine as this may be also contributing to her edema.
#Paroxysmal atrial fibrillation with rapid ventricular
-Converted to sinus rhythm with IV diltiazem. Per review of telemetry patient continues to have paroxysms/short runs of atrial fibrillation. However when in sinus rhythm patient has bradycardia.
-Increase Lopressor 25 mg to BID, was only taking qHS
-[id number] score 5 (age +2, female +1, hypertension +1, diabetes +1). Patient has history of frequent falls and dementia. Many prior conversations with daughter, Alena, regarding anticoagulation. Decision previously has been to continue with
aspirin and not initiate oral anticoagulation.
HPI :
Patient is an 88 yof female w/ past medical history of diabetes, hypertension, hyperlipidemia, dementia with sundowning, history of falls and paroxysmal atrial fibrillation not on OAC due to family choice and risk of falls who presented from
[facility] with complaints of persistent lower extremity edema despite outpatient antibiotics. Per review of medical records patient had been on doxycycline without improvement of edema and erythema. On arrival to emergency
department patient was found to be in atrial fibrillation with accelerated ventricular response. AST/ALT mildly elevated at 37/40. She was given IV diltiazem and vancomycin in emergency department. Patient was seen by infectious disease morning of
01/18/2024 who felt edema was likely more heart failure related and not from cellulitis. Chest x-ray was performed 01/18/2024 which demonstrated diffusely increased interstitial markings suggestive of interstitial pulmonary edema. proBNP was found
to be elevated at 3610. Given concern for acute heart failure cardiology being consulted.
Daughter, Alena is CARLYN. Patient has h/o progressive dementia with hallucinations and sundowning.
Progress Note - Gaming Surveillance Observer
Subjective
Date of Service: January 19, 2024
No acute overnight events. Patient's resting comfortably in bed, no cardiac complaints at this time.
Objective
Labs:
01/19/24 06:56
01/19/24 06:56
Labs
Hgb 10.0 g/dL (12.0-16.0) L 01/19/24 06:56
Hct 31.1 % (37.0-47.0) L 01/19/24 06:56
Plt Count 309 10^3/uL (130-400) 01/19/24 06:56
Sodium 144 mmol/L (135-145) 01/19/24 06:56
Potassium 4.4 mmol/L (3.5-5.1) 01/19/24 06:56
BUN 18 mg/dl (7-17) H 01/19/24 06:56
Creatinine 1.1 mg/dL (0.6-1.0) H 01/19/24 06:56
Glucose 104 mg/dl (70-99) H 01/19/24 06:56
Vital Signs and I&O:
Vital Signs
Temp Pulse Resp BP Pulse Ox
97.2 F 66 18 112/58 93
01/19/24 11:33 01/19/24 11:33 01/19/24 11:33 01/19/24 11:33 01/19/24 11:33
Vital Signs
Temp Pulse Resp BP Pulse Ox
97.2 F 66 18 112/58 93
01/19/24 11:33 01/19/24 11:33 01/19/24 11:33 01/19/24 11:33 01/19/24 11:33
Intake & Output
01/17/24 01/18/24 01/19/24 01/20/24
06:59 06:59 06:59 06:59
Intake Total 240 / 240 120 / 120
Balance 240 / 240 120 / 120
Physical Exam
Physical Exam
Gen: NAD, AA
HEENT: NC/AT, sclera anicteric
Neck: No JVD
CV: RRR, NL s1/s2, no M/R/G
Lungs: CTAB
Abd: S/ND
Ext: 1+ bilateral LE edema, overlying skin is warm and erythematous
Skin: Warm, dry
Neuro: Non-focal
[2024-01-19 15:19] VITALS: BP 140/60
[2024-01-19 16:48] LABS: Glucose - Point of Care 199 mg/dl (70-99)
[2024-01-19] MEDS: LOVENOX 40 MG SC (17:24)
[2024-01-19 19:25] VITALS: BP 149/73
[2024-01-19 21:08] LABS: Glucose - Point of Care 277 mg/dl (70-99)
[2024-01-19] MEDS: ARICEPT 10 MG PO (21:14)
[2024-01-19] MEDS: LANTUS 0.18 UNITS SC (21:15)
[2024-01-19 23:43] VITALS: BP 145/62
[2024-01-20 03:53] VITALS: BP 124/73
[2024-01-20 06:00] VITALS: BMI 26.4
[2024-01-20 07:10] LABS: % Basophils 0.8 % (0-2); % Eosinophils 10.4 % (0-6); % Immature Granulocytes 0.6 % (0-0.5); % Monocytes 8.3 % (1.7-9.3); % Neutrophils 59.9 % (42.2-75.2); Absolute Basophils 0.1 10^3/uL (0-0.2); Absolute Eosinophils 0.9 10^3/uL (0-0.7); Absolute Immature Granulocytes 0.1 10^3/uL (0-0.05); Absolute Lymphocytes 1.8 10^3/uL (1.2-3.4); Absolute Monocytes 0.7 10^3/uL (0.1-0.6); Absolute Neutrophils 5.3 10^3/uL (1.4-6.5); Hematocrit 31.8 % (37.0-47.0); Hemoglobin 9.7 g/dL (12.0-16.0); Mean Corp Hgb Conc. 30.5 g/dL (33.0-37.0); Mean Corpuscular Volume 91.9 fL (81.0-99.0); Mean Platelet Volume 9.4 fL (7.4-10.4); Nucleated Red Blood Cells % 0 %; Platelet Count 284 10^3/uL (130-400); Red Blood Cell Count 3.46 10^6/uL (4.20-5.40); Red Cell Dist. Width 14.3 % (11.5-14.5); White Blood Cell Count 8.8 10^3/uL (4.8-10.8)
[2024-01-20 07:30] LABS: Blood Urea Nitrogen 30 mg/dl (7-17); Calcium 8.3 mg/dl (8.4-10.2); Carbon Dioxide 31 mmol/L (22-30); Chloride 104 mmol/L (98-107); Estimated Creatinine Clearance 24 ml/min; Glucose 133 mg/dl (70-99); Potassium 4.4 mmol/L (3.5-5.1); Sodium 141 mmol/L (135-145); eGFR 36.41
[2024-01-20 08:09] VITALS: BP 144/64
[2024-01-20] MEDS: ASPIR LOW (ENTERIC COATED) 81 MG PO (08:11)
[2024-01-20] MEDS: LOPRESSOR 25 MG PO ×2 (08:11→19:44)
[2024-01-20] MEDS: FEOSOL 325 MG PO (08:11)
[2024-01-20] MEDS: HYDROPHOR 1 APPLIC TOPICAL (08:12)
[2024-01-20 08:33] LABS: Glucose - Point of Care 138 mg/dl (70-99)
[2024-01-20] MEDS: NOVOLOG FLEXPEN-MODERATE RESISTANCE SC (08:34)
[2024-01-20] MEDS: MIRALAX 17 GRAMS PO (09:12)
[2024-01-20] MEDS: SENOKOT-S 1 TABLET PO (09:12)
--- NOTE | 2024-01-20 10:29 | W.PN.CARDCBS ---
Addendum entered and electronically signed by Anton Bravo MD 01/20/24 11:07:
Would discharge on 20 mg daily of Lasix
Stable cardiac status, we will sign off, please recall as needed
Outpatient follow-up to be arranged
Original Note:
Today's Communication / Plan
-
Transition to p.o. Lasix
Impression / Plan
-
PCP: Jefe Kearney DO
Production Scheduler: None prior to admission, Initially seen Dr. Wild
Impression:
Presented 01/17/2024 with lower extremity edema and erythema
Acute heart failure with preserved ejection fraction, proBNP 3610
Paroxysmal atrial fibrillation w/ RVR
Paroxysmal atrial fibrillation
Frequent falls/ambulatory dysfunction
Hypertension
Insulin-dependent diabetes
Hyperlipidemia
Dementia with sundowning
Echo 01/18/2024: EF 55-60%, MAC, aortic sclerosis, mild TR, PASP 50-55 mmHg
ECHO 10/18/22: EF 55-60%, MAC, mild MR, aortic sclerosis, mild AR, mild TR, PAP 35-40mmHg
Plan:
-Presents 01/18/2024 from [facility] with lower extremity edema and erythema not responding to outpatient oral antibiotics.
#Acute heart failure with preserved ejection fraction
-proBNP 3610. Chest x-ray consistent with heart failure/pulmonary edema
-Preserved LVEF on echocardiogram
-Volume status is improved today
-With rising Cr would switch to PO lasix 20mg daily to start tomorrow
#HTN
-History of hypertension and takes amlodipine as outpatient. Stop amlodipine as this may be also contributing to her edema.
#Paroxysmal atrial fibrillation with rapid ventricular response
-Converted to sinus rhythm with IV diltiazem. Per review of telemetry patient continues to have paroxysms/short runs of atrial fibrillation.
-Increase Lopressor 25 mg to BID, was only taking qHS
-[id number] score 5 (age +2, female +1, hypertension +1, diabetes +1). Patient has history of frequent falls and dementia. Many prior conversations with daughter, Alena, regarding anticoagulation. Decision previously has been to continue with
aspirin and not initiate oral anticoagulation.
HPI :
Patient is an 88 yof female w/ past medical history of diabetes, hypertension, hyperlipidemia, dementia with sundowning, history of falls and paroxysmal atrial fibrillation not on OAC due to family choice and risk of falls who presented from
[facility] with complaints of persistent lower extremity edema despite outpatient antibiotics. Per review of medical records patient had been on doxycycline without improvement of edema and erythema. On arrival to emergency
department patient was found to be in atrial fibrillation with accelerated ventricular response. AST/ALT mildly elevated at 37/40. She was given IV diltiazem and vancomycin in emergency department. Patient was seen by infectious disease morning of
01/18/2024 who felt edema was likely more heart failure related and not from cellulitis. Chest x-ray was performed 01/18/2024 which demonstrated diffusely increased interstitial markings suggestive of interstitial pulmonary edema. proBNP was found
to be elevated at 3610. Given concern for acute heart failure cardiology being consulted.
Daughter, Alena is CARLYN. Patient has h/o progressive dementia with hallucinations and sundowning.
Progress Note - Production Scheduler
Subjective
Date of Service: January 20, 2024
No acute overnight events. Patient resting comfortably today. Tells me legs are still sore. Breathing is comfortable.
Objective
Labs:
01/20/24 06:12
01/20/24 06:12
Labs
Hgb 9.7 g/dL (12.0-16.0) L 01/20/24 06:12
Hct 31.8 % (37.0-47.0) L 01/20/24 06:12
Plt Count 284 10^3/uL (130-400) 01/20/24 06:12
Sodium 141 mmol/L (135-145) 01/20/24 06:12
Potassium 4.4 mmol/L (3.5-5.1) 01/20/24 06:12
BUN 30 mg/dl (7-17) H 01/20/24 06:12
Creatinine 1.4 mg/dL (0.6-1.0) H 01/20/24 06:12
Glucose 133 mg/dl (70-99) H 01/20/24 06:12
Vital Signs and I&O:
Vital Signs
Temp Pulse Resp BP Pulse Ox
97.5 F 71 18 144/64 99
01/20/24 08:09 01/20/24 08:11 01/20/24 08:09 01/20/24 08:11 01/20/24 08:09
Vital Signs
Temp Pulse Resp BP Pulse Ox
97.5 F 71 18 144/64 99
01/20/24 08:09 01/20/24 08:11 01/20/24 08:09 01/20/24 08:11 01/20/24 08:09
Intake & Output
01/18/24 01/19/24 01/20/24 01/21/24
06:59 06:59 06:59 06:59
Intake Total 240 / 240 120 / 120 480 / 480
Balance 240 / 240 120 / 120 480 / 480
Physical Exam
Physical Exam
Gen: NAD, AA
HEENT: NC/AT, sclera anicteric
Neck: No JVD
CV: RRR, NL s1/s2
Lungs: CTAB
Abd: S/ND
Ext: Trace LE edema, overlying skin is erythematous and warm
Skin: Warm, dry
Neuro: Non-focal
[2024-01-20 12:12] LABS: Glucose - Point of Care 190 mg/dl (70-99)
[2024-01-20 12:26] VITALS: BP 140/63
--- NOTE | 2024-01-20 12:31 | W.PN.HOSP.TC ---
Today's Communication/Plan
-
monitor vitals
see plan
cw metoprolol
wean o2 as tolerated
dc planning
hold lasix today
monitor renal function
Assessment / Plan
Assessment / Plan
Impression.
87 years old who admitted for bilateral lower extremity cellulitis developed shortness of breath last night, seen by infectious disease, discontinued antibiotic and recommend treatment for CHF.
Assessment/plan
Acute on chronic diastolic congestive heart failure
Patient presented with shortness of breath.
BNP level is elevated at 3610
hold IV lasix today; resume PO starting 01/20
Continue Daily weight.
Continue strict I's and O's.
Cardiology following
Repeat echo with preserved EF
Cellulitis ruled out.
- On abx since 01/07. History says doxycycline then linezolid started today. Extensive erythema in the legs with induration and tenderness to palpation. Nails and some skin excoriations possibly source. No obvious ulcerations or evidence of deep
tissue infection.
Seen by infectious disease.
Recommend to discontinue IV antibiotic
- bilateral LE u/s neg for DVT
Atrial fibrillation with rapid ventricular rate.
hx of pAF
Now on metoprolol 25 twice daily
- prn diltiazem iv for rates > 120
- not on AC due to falls, continue aspirin 81
renal insufficiency suspect likely secondary to diuresis
Monitor
History of diabetes mellitus
Continue home medication
lantus 18 hs
Insulin sliding scale
Diabetic diet
Hemoglobin A1c 8.7
Dementia
- continue donepezil
Code status - DNR
DVT prophylaxis: Heparin
General: Well Developed
HEENT: Normocephalic, Atraumatic, Moist Mucous Membranes, No Ptosis, PERRLA and Nose Appears Normal
Respiratory: Clear to Auscultation and Non Labored Respirations
Cardiac: Regular Rhythm and S1/S2
GI: Soft, Nontender, Nondistended and Normal Bowel Sounds
Genito-urinary: No Costovertebral Tender
Musculoskeletal: Edema, Right Upper Extrem and Edema, Left Upper Extrem
Skin: Other (Bilateral lower extremity redness)
Neuro: Awake, Alert, Oriented, AO x 3 and No Motor Deficits
Psych: Calm and Confused
Anticipated Discharge: Within 24 hours
Subjective/Interval History
-
Date of Service: January 20, 2024
denies nausea
Objective Data
-
Labs:
Laboratory Results
01/20/24
06:12
WBC 8.8
Hgb 9.7 L
Hct 31.8 L
Plt Count 284
Sodium 141
Potassium 4.4
Chloride 104
Carbon Dioxide 31 H
BUN 30 H
Creatinine 1.4 H
Glucose 133 H
Calcium 8.3 L
Vital Signs:
Vital Signs
Temp Pulse Resp BP Pulse Ox
97.5 F 74 18 140/63 98
01/20/24 12:26 01/20/24 12:26 01/20/24 12:26 01/20/24 12:26 01/20/24 12:26
I&O
01/19/24 01/20/24 01/21/24
06:59 06:59 06:59
Intake Total 120 / 120 480 / 480
Balance 120 / 120 480 / 480
[2024-01-20] MEDS: NOVOLOG FLEXPEN-MODERATE RESISTANCE 1 UNITS SC ×2 (13:02→17:56)
[2024-01-20] MEDS: ZOFRAN 4 MG IV (15:58)
[2024-01-20] MEDS: MYLICON 80 MG PO (16:06)
[2024-01-20 16:15] VITALS: BP 141/66
--- NOTE | 2024-01-20 16:25 | PTCARENOTE ---
Pt with nausea in the afternoon. Pt did have a large BM earlier today. Dr Robertson notified. PRN Zofran given and one time dose of simethicone given.
[2024-01-20 17:52] LABS: Glucose - Point of Care 156 mg/dl (70-99)
[2024-01-20] MEDS: LOVENOX 40 MG SC (17:57)
[2024-01-20 19:36] VITALS: BP 138/56
[2024-01-20] MEDS: ARICEPT 10 MG PO (19:44)
[2024-01-20 21:11] LABS: Glucose - Point of Care 203 mg/dl (70-99)
[2024-01-20] MEDS: LANTUS 0.18 UNITS SC (21:28)
[2024-01-20 23:30] VITALS: BP 143/58
[2024-01-20] MEDS: CARDIZEM 10 MG IV (23:46)
[2024-01-21 03:37] VITALS: BP 136/56
[2024-01-21 06:00] VITALS: BMI 26.5
[2024-01-21 06:46] VITALS: BP 131/51
[2024-01-21 07:23] LABS: Glucose - Point of Care 218 mg/dl (70-99)
[2024-01-21 07:36] LABS: % Basophils 0.4 % (0-2); % Eosinophils 2.8 % (0-6); % Immature Granulocytes 0.9 % (0-0.5); % Lymphocytes 11.7 % (20.5-51.1); % Monocytes 6.6 % (1.7-9.3); % Neutrophils 77.6 % (42.2-75.2); Absolute Eosinophils 0.2 10^3/uL (0-0.7); Absolute Immature Granulocytes 0.1 10^3/uL (0-0.05); Absolute Lymphocytes 0.6 10^3/uL (1.2-3.4); Absolute Monocytes 0.4 10^3/uL (0.1-0.6); Absolute Neutrophils 4.2 10^3/uL (1.4-6.5); Hematocrit 31.9 % (37.0-47.0); Hemoglobin 9.5 g/dL (12.0-16.0); Mean Corp Hgb Conc. 29.8 g/dL (33.0-37.0); Mean Corpuscular Hgb 27.9 pg (27.0-31.0); Mean Corpuscular Volume 93.5 fL (81.0-99.0); Mean Platelet Volume 9.5 fL (7.4-10.4); Nucleated Red Blood Cells % 0 %; Platelet Count 237 10^3/uL (130-400); Red Blood Cell Count 3.41 10^6/uL (4.20-5.40); Red Cell Dist. Width 14.5 % (11.5-14.5); White Blood Cell Count 5.5 10^3/uL (4.8-10.8)
[2024-01-21 07:57] LABS: Blood Urea Nitrogen 36 mg/dl (7-17); Calcium 7.9 mg/dl (8.4-10.2); Carbon Dioxide 26 mmol/L (22-30); Chloride 106 mmol/L (98-107); Estimated Creatinine Clearance 23 ml/min; Glucose 144 mg/dl (70-99); Potassium 4.8 mmol/L (3.5-5.1); Sodium 140 mmol/L (135-145); eGFR 33.52
[2024-01-21] MEDS: NOVOLOG FLEXPEN-MODERATE RESISTANCE 3 UNITS SC (08:06)
[2024-01-21] MEDS: ASPIR LOW (ENTERIC COATED) 81 MG PO (08:08)
[2024-01-21] MEDS: LASIX PO (08:12)
[2024-01-21] MEDS: FEOSOL 325 MG PO (08:13)
[2024-01-21] MEDS: LOPRESSOR PO (10:23)
--- NOTE | 2024-01-21 10:23 | PN.CDI ---
CDI
- -
CDI:
Physician Documentation Request
Admit Date: 01/17/24 19:47
Dear Doctor Marcelo,
Clinical Indicators:
Patient admitted with acute on chronic HFpEF.
01/20 PN, 'renal insufficiency suspect likely secondary to diuresis'
Cr/GFR trend:
01/17/24 01/18/24 01/19/24
17:18 07:19 06:56
Creatinine 1.1 H 1.0 1.1 H
eGFR 48.63 54.53 48.63
01/20/24
06:12
Creatinine 1.4 H
eGFR 36.41
Please clarify which of the following accurately represents the patient's renal status:
ANA
ANA on CKD (please specify stage)
Renal insufficiency only
Other
Criteria for ANA*
1 Increase in serum creatinine by > or = to 0.3 mg/dL (> or = to 26.5 micromol/L) within 48 hours, OR
2 Increase in serum creatinine to > or = to 1.5 times baseline, which is known or presumed to have occurred within 7 days, OR
3 Urine volume < 0.5 nL/kg/hour for six hours
Stages of Chronic Kidney Disease*
Level Description GFR
G1 Normal or High >90
G2 Mildly decreased 60-89
G3a Mildly to moderately decreased 45-59
G3b Moderately to severely decreased 30-44
G4 Severely decreased 15-29
G5 Kidney failure <15
Use of terms such as suspected, likely, concern for, or probable (associated with a specific diagnosis that is being evaluated, monitored, or treated as if it exists) are acceptable and can be coded in the inpatient setting, when documented at the
time of discharge.
Thank you,
Maribel Covarrubias RN BSN
CDI Specialist
available via tiger text
Please use your independent medical judgment in providing your response.
*Source: Kidney Disease: Improving Global Outcomes (KDIGO) 2012
[2024-01-21] MEDS: HYDROPHOR 1 APPLIC TOPICAL (11:03)
--- NOTE | 2024-01-21 11:19 | CM ---
CM continues to follow for discharge/return to [facility]. Updated clinical sent via [facility] for possible discharge with 24 hours.
Plan: Return to [facility] at discharge.
[2024-01-21 11:42] VITALS: BP 130/54
[2024-01-21 12:17] LABS: Urine Albumin 1+ (Neg - Trace); Urine Bilirubin Negative (Negative); Urine Character Clear (Clear); Urine Color Yellow; Urine Glucose Negative (Negative); Urine Ketone Negative (Negative); Urine Leukocyte Negative (Negative); Urine Nitrite Negative (Negative); Urine Occult Blood Negative (Negative); Urine Urobilinogen Negative (Neg - 1+)
[2024-01-21 12:24] LABS: Glucose - Point of Care 134 mg/dl (70-99)
[2024-01-21] MEDS: NOVOLOG FLEXPEN-MODERATE RESISTANCE SC ×2 (12:27→17:21)
--- NOTE | 2024-01-21 12:29 | W.PN.HOSP.TC ---
Today's Communication/Plan
-
monitor vitals
see plan
check Ua
check bladder scan
hold lasix
cw metoprolol with holding parameters
Assessment / Plan
Assessment / Plan
Impression.
87 years old who admitted for bilateral lower extremity cellulitis developed shortness of breath last night, seen by infectious disease, discontinued antibiotic and recommend treatment for CHF.
Assessment/plan
Acute on chronic diastolic congestive heart failure
Patient presented with shortness of breath.
BNP level is elevated at 3610
hold IV lasix today; resume PO starting 01/20 however hold given Increased creatinine
Continue Daily weight.
Continue strict I's and O's.
Cardiology following
Repeat echo with preserved EF
Cellulitis ruled out.
- On abx since 01/07. History says doxycycline then linezolid started today. Extensive erythema in the legs with induration and tenderness to palpation. Nails and some skin excoriations possibly source. No obvious ulcerations or evidence of deep
tissue infection.
Seen by infectious disease.
Recommend to discontinue IV antibiotic
- bilateral LE u/s neg for DVT
Atrial fibrillation with rapid ventricular rate.
hx of pAF
Now on metoprolol 25 twice daily
- prn diltiazem iv for rates > 120
- not on AC due to falls, continue aspirin 81
ANA suspect likely secondary to diuresis
Monitor
Creatinine 1.5 today, monitor
Check UA
Bladder scan
hold lasix for now
History of diabetes mellitus
Continue home medication
lantus 18 hs
Insulin sliding scale
Diabetic diet
Hemoglobin A1c 8.7
Dementia
- continue donepezil
Code status - DNR
DVT prophylaxis: Heparin
General: Well Developed
HEENT: Normocephalic, Atraumatic, Moist Mucous Membranes, No Ptosis, PERRLA and Nose Appears Normal
Respiratory: Clear to Auscultation and Non Labored Respirations
Cardiac: Regular Rhythm and S1/S2
GI: Soft, Nontender, Nondistended and Normal Bowel Sounds
Genito-urinary: No Costovertebral Tender
Musculoskeletal: Edema, Right Upper Extrem and Edema, Left Upper Extrem
Neuro: Awake, Alert, Oriented, AO x 3 and No Motor Deficits
Psych: Calm and Confused
I spent a total of 51 minutes with the patient or on the floor. More than 50% of this time involved counseling and coordination of care.
Anticipated Discharge: Within 24 hours
Subjective/Interval History
-
Date of Service: January 21, 2024
denies pain
Objective Data
-
Labs:
Laboratory Results
01/21/24
06:53
WBC 5.5
Hgb 9.5 L
Hct 31.9 L
Plt Count 237
Sodium 140
Potassium 4.8
Chloride 106
Carbon Dioxide 26
BUN 36 H
Creatinine 1.5 H
Glucose 144 H
Calcium 7.9 L
Vital Signs:
Vital Signs
Temp Pulse Resp BP Pulse Ox
98.6 F 61 18 130/54 98
01/21/24 11:42 01/21/24 11:42 01/21/24 11:42 01/21/24 11:42 01/21/24 11:42
I&O
01/20/24 01/21/24 01/22/24
06:59 06:59 06:59
Intake Total 480 / 480 240 / 240
Balance 480 / 480 240 / 240
[2024-01-21 12:58] LABS: Urine Red Blood Cell 0-2 /HPF (0-2); Urine Squamous Cell 21-25 /LPF (Few); Urine White Cell 0-2 /HPF (0-5)
--- NOTE | 2024-01-21 13:27 | PTCARENOTE ---
Metoprolol held this morning per orders. HR 52. Dr. Robertson made aware.
[2024-01-21 15:27] VITALS: BP 137/61
[2024-01-21 17:22] LABS: Glucose - Point of Care 109 mg/dl (70-99)
[2024-01-21] MEDS: LOVENOX 40 MG SC (17:22)
[2024-01-21 19:43] VITALS: BP 140/53
[2024-01-21] MEDS: ARICEPT 10 MG PO (19:49)
[2024-01-21] MEDS: LOPRESSOR 25 MG PO (19:49)
[2024-01-21 21:35] LABS: Glucose - Point of Care 159 mg/dl (70-99)
[2024-01-21] MEDS: LANTUS 0.18 UNITS SC (21:51)
[2024-01-21 23:51] VITALS: BP 141/56
[2024-01-21] MEDS: CARDIZEM 10 MG IV (23:57)
[2024-01-22 03:14] VITALS: BP 147/59
[2024-01-22 07:22] LABS: % Basophils 0.7 % (0-2); % Eosinophils 7.6 % (0-6); % Immature Granulocytes 0.7 % (0-0.5); % Lymphocytes 20.7 % (20.5-51.1); % Neutrophils 60.3 % (42.2-75.2); Absolute Eosinophils 0.4 10^3/uL (0-0.7); Absolute Lymphocytes 1.1 10^3/uL (1.2-3.4); Absolute Monocytes 0.6 10^3/uL (0.1-0.6); Absolute Neutrophils 3.3 10^3/uL (1.4-6.5); Hematocrit 29.6 % (37.0-47.0); Hemoglobin 9.2 g/dL (12.0-16.0); Mean Corp Hgb Conc. 31.1 g/dL (33.0-37.0); Mean Corpuscular Hgb 28.8 pg (27.0-31.0); Mean Corpuscular Volume 92.5 fL (81.0-99.0); Mean Platelet Volume 9.6 fL (7.4-10.4); Nucleated Red Blood Cells % 0 %; Platelet Count 227 10^3/uL (130-400); Red Cell Dist. Width 14.3 % (11.5-14.5); White Blood Cell Count 5.5 10^3/uL (4.8-10.8)
[2024-01-22 07:27] LABS: Blood Urea Nitrogen 40 mg/dl (7-17); Calcium 8.2 mg/dl (8.4-10.2); Carbon Dioxide 28 mmol/L (22-30); Chloride 107 mmol/L (98-107); Estimated Creatinine Clearance 24 ml/min; Glucose 79 mg/dl (70-99); Potassium 4.3 mmol/L (3.5-5.1); Sodium 141 mmol/L (135-145); eGFR 36.41
[2024-01-22 07:45] VITALS: BP 102/66
[2024-01-22 07:49] LABS: Glucose - Point of Care 75 mg/dl (70-99)
[2024-01-22] MEDS: NOVOLOG FLEXPEN-MODERATE RESISTANCE SC (09:41)
[2024-01-22] MEDS: LOPRESSOR 25 MG PO (10:12)
[2024-01-22] MEDS: ASPIR LOW (ENTERIC COATED) 81 MG PO (10:12)
[2024-01-22] MEDS: FEOSOL 325 MG PO (10:12)
[2024-01-22] MEDS: HYDROPHOR 1 APPLIC TOPICAL (11:30)
[2024-01-22 11:49] LABS: Glucose - Point of Care 184 mg/dl (70-99)
[2024-01-22 11:58] VITALS: BP 96/62
[2024-01-22] MEDS: NOVOLOG FLEXPEN-MODERATE RESISTANCE 1 UNITS SC (12:25)
[2024-01-22] MEDS: TYLENOL 650 MG PO (12:31)
--- NOTE | 2024-01-22 12:38 | W.PN.HOSP.TC ---
Today's Communication/Plan
-
monitor vitals
see plan
monitor renal function
decrease metoprolol to 12.5 BID
lasix on hold
Assessment / Plan
Assessment / Plan
Impression.
87 years old who admitted for bilateral lower extremity cellulitis developed shortness of breath last night, seen by infectious disease, discontinued antibiotic and recommend treatment for CHF.
Assessment/plan
Acute on chronic diastolic congestive heart failure
Patient presented with shortness of breath.
BNP level is elevated at 3610
hold PO starting 01/20 however hold given Increased creatinine
Continue Daily weight.
Continue strict I's and O's.
Cardiology following
Repeat echo with preserved EF
Cellulitis ruled out.
- On abx since 01/07. History says doxycycline then linezolid started today. Extensive erythema in the legs with induration and tenderness to palpation. Nails and some skin excoriations possibly source. No obvious ulcerations or evidence of deep
tissue infection.
Seen by infectious disease.
Recommend to discontinue IV antibiotic
- bilateral LE u/s neg for DVT
Atrial fibrillation with rapid ventricular rate.
hx of pAF
dec metoprolol to 12.5 BID; bradycardic and hypotensive at times
- prn diltiazem iv for rates > 120
- not on AC due to falls, continue aspirin 81
ANA on CKD 3a suspect likely secondary to diuresis
Monitor
Creatinine 1.4 today, monitor
Bladder scan
hold lasix for now
History of diabetes mellitus
Continue home medication
lantus 18 hs
Insulin sliding scale
Diabetic diet
Hemoglobin A1c 8.7
Dementia
- continue donepezil
Code status - DNR
DVT prophylaxis: Heparin
General: Well Developed
HEENT: Normocephalic, Atraumatic, Moist Mucous Membranes, No Ptosis, PERRLA and Nose Appears Normal
Respiratory: Clear to Auscultation and Non Labored Respirations
Cardiac: Regular Rhythm and S1/S2
GI: Soft, Nontender, Nondistended and Normal Bowel Sounds
Genito-urinary: No Costovertebral Tender
Musculoskeletal: Edema, Right Upper Extrem and Edema, Left Upper Extrem
Neuro: Awake, Alert, Oriented, AO x 3 and No Motor Deficits
Psych: Calm and Confused
I spent a total of 51 minutes with the patient or on the floor. More than 50% of this time involved counseling and coordination of care.
Anticipated Discharge: Within 24 hours
Subjective/Interval History
-
Date of Service: January 22, 2024
denies pain
Objective Data
-
Labs:
Laboratory Results
01/22/24
06:25
WBC 5.5
Hgb 9.2 L
Hct 29.6 L
Plt Count 227
Sodium 141
Potassium 4.3
Chloride 107
Carbon Dioxide 28
BUN 40 H
Creatinine 1.4 H
Glucose 79
Calcium 8.2 L
Vital Signs:
Vital Signs
Temp Pulse Resp BP Pulse Ox
98.2 F 59 20 96/62 94
01/22/24 11:58 01/22/24 11:58 01/22/24 11:58 01/22/24 11:58 01/22/24 11:58
I&O
01/21/24 01/22/24 01/23/24
06:59 06:59 06:59
Intake Total 240 / 240
Output Total 200 / 200
Balance 240 / 240 -200 / -200
--- NOTE | 2024-01-22 14:23 | PTCARENOTE ---
Patient with 2 second pause this am and HR in 40's. Patient asymptomatic. Dr Robertson made aware. Metoprolol has been decreased from 25mg to 12.5mg starting tonight.
[2024-01-22 15:44] VITALS: BP 102/63
[2024-01-22 16:40] LABS: Glucose - Point of Care 220 mg/dl (70-99)
[2024-01-22] MEDS: LOVENOX 30 MG SC (16:51)
[2024-01-22] MEDS: NOVOLOG FLEXPEN-MODERATE RESISTANCE 3 UNITS SC (16:53)
[2024-01-22 19:45] VITALS: BP 105/68
[2024-01-22] MEDS: ARICEPT 10 MG PO (20:25)
[2024-01-22] MEDS: LOPRESSOR 12.5 MG PO (20:25)
[2024-01-22 21:13] LABS: Glucose - Point of Care 208 mg/dl (70-99)
[2024-01-22] MEDS: LANTUS 0.18 UNITS SC (21:56)
[2024-01-22 23:20] VITALS: BP 137/81
[2024-01-23] VITALS (7 sets, daily range): BP systolic 93–179; BP diastolic 60–72; BMI 25.2
[2024-01-23 07:25] LABS: Glucose - Point of Care 69 mg/dl (70-99)
[2024-01-23 07:45] LABS: Glucose - Point of Care 89 mg/dl (70-99)
[2024-01-23] MEDS: NOVOLOG FLEXPEN-MODERATE RESISTANCE SC ×2 (08:10→12:32)
[2024-01-23] MEDS: FEOSOL 325 MG PO (08:11)
[2024-01-23] MEDS: ASPIR LOW (ENTERIC COATED) 81 MG PO (08:11)
[2024-01-23] MEDS: HYDROPHOR 1 APPLIC TOPICAL (08:11)
[2024-01-23] MEDS: LOPRESSOR 12.5 MG PO ×2 (08:11→21:17)
[2024-01-23 08:19] LABS: % Basophils 0.3 % (0-2); % Eosinophils 8.5 % (0-6); % Immature Granulocytes 0.7 % (0-0.5); % Lymphocytes 17.8 % (20.5-51.1); % Monocytes 9.2 % (1.7-9.3); % Neutrophils 63.5 % (42.2-75.2); Absolute Eosinophils 0.6 10^3/uL (0-0.7); Absolute Immature Granulocytes 0.1 10^3/uL (0-0.05); Absolute Lymphocytes 1.3 10^3/uL (1.2-3.4); Absolute Monocytes 0.7 10^3/uL (0.1-0.6); Absolute Neutrophils 4.5 10^3/uL (1.4-6.5); Hematocrit 32.5 % (37.0-47.0); Hemoglobin 10.2 g/dL (12.0-16.0); Mean Corp Hgb Conc. 31.4 g/dL (33.0-37.0); Mean Corpuscular Hgb 28.7 pg (27.0-31.0); Mean Corpuscular Volume 91.3 fL (81.0-99.0); Mean Platelet Volume 9.6 fL (7.4-10.4); Nucleated Red Blood Cells % 0 %; Platelet Count 262 10^3/uL (130-400); Red Blood Cell Count 3.56 10^6/uL (4.20-5.40); Red Cell Dist. Width 14.3 % (11.5-14.5); White Blood Cell Count 7.1 10^3/uL (4.8-10.8)
[2024-01-23 08:48] LABS: Blood Urea Nitrogen 33 mg/dl (7-17); Calcium 8.6 mg/dl (8.4-10.2); Carbon Dioxide 26 mmol/L (22-30); Chloride 105 mmol/L (98-107); Estimated Creatinine Clearance 29 ml/min; Glucose 83 mg/dl (70-99); Potassium 3.9 mmol/L (3.5-5.1); Sodium 140 mmol/L (135-145); eGFR 43.81
--- NOTE | 2024-01-23 12:03 | W.PN.HOSP.TC ---
Today's Communication/Plan
-
Monitor vital signs
see plan
Will need to monitor closely on telemetry due to bradycardia and pauses, will need to reconsult cardiology if pauses are more frequent
Hold p.o. Lasix
Assessment / Plan
Assessment / Plan
Impression.
87 years old who admitted for bilateral lower extremity cellulitis developed shortness of breath last night, seen by infectious disease, discontinued antibiotic and recommend treatment for CHF.
Assessment/plan
Acute on chronic diastolic congestive heart failure
Patient presented with shortness of breath.
BNP level is elevated at 3610
hold PO lasix given Increased creatinine
Continue Daily weight.
Continue strict I's and O's.
Cardiology signed off
Repeat echo with preserved EF
Atrial fibrillation with rapid ventricular rate.
hx of pAF
dec metoprolol to 12.5 BID; bradycardic and hypotensive at times. few pauses of 2sec. monitor closely. if increase pauses then will need to reconsult cardiology
- not on AC due to falls, continue aspirin 81
Cellulitis ruled out.
- On abx since 01/07. History says doxycycline then linezolid started today. Extensive erythema in the legs with induration and tenderness to palpation. Nails and some skin excoriations possibly source. No obvious ulcerations or evidence of deep
tissue infection.
Seen by infectious disease.
Recommend to discontinue IV antibiotic
- bilateral LE u/s neg for DVT
ANA on CKD 3a suspect likely secondary to diuresis
Monitor
Creatinine 1.2 today, monitor
Bladder scan
hold lasix for now
History of diabetes mellitus
Continue home medication
lantus 18 hs
Insulin sliding scale
Diabetic diet
Hemoglobin A1c 8.7
Dementia
- continue donepezil
Code status - DNR
DVT prophylaxis: Heparin
General: Well Developed
HEENT: Normocephalic, Atraumatic, Moist Mucous Membranes, No Ptosis, PERRLA and Nose Appears Normal
Respiratory: Clear to Auscultation and Non Labored Respirations
Cardiac: Regular Rhythm and S1/S2
GI: Soft, Nontender, Nondistended and Normal Bowel Sounds
Genito-urinary: No Costovertebral Tender
Musculoskeletal: Edema, Right Upper Extrem and Edema, Left Upper Extrem
Neuro: Awake, Alert, Oriented, AO x 3 and No Motor Deficits
Psych: Calm and Confused
Anticipated Discharge: Within 24 hours
Subjective/Interval History
-
Date of Service: January 23, 2024
denies pain
Objective Data
-
Labs:
Laboratory Results
01/23/24
07:44
WBC 7.1
Hgb 10.2 L
Hct 32.5 L
Plt Count 262
Sodium 140
Potassium 3.9
Chloride 105
Carbon Dioxide 26
BUN 33 H
Creatinine 1.2 H
Glucose 83
Calcium 8.6
Vital Signs:
Vital Signs
Temp Pulse Resp BP Pulse Ox
98.2 F 56 18 93/63 96
01/23/24 11:56 01/23/24 11:56 01/23/24 11:56 01/23/24 11:56 01/23/24 11:56
I&O
01/22/24 01/23/24 01/24/24
06:59 06:59 06:59
Intake Total 1080 / 1080
Output Total 200 / 200
Balance -200 / -200 1080 / 1080
[2024-01-23 12:29] LABS: Glucose - Point of Care 138 mg/dl (70-99)
--- NOTE | 2024-01-23 13:02 | CM ---
CM continues to follow for return to [facility]. Pt being monitored on telemetry due to pauses and decreased heart rate.
Plan: Return to [facility] at discharge.
Report: [phone]
[2024-01-23 17:16] LABS: Glucose - Point of Care 295 mg/dl (70-99)
[2024-01-23] MEDS: NOVOLOG FLEXPEN-MODERATE RESISTANCE 5 UNITS SC (17:23)
[2024-01-23] MEDS: LOVENOX 30 MG SC (17:35)
[2024-01-23 21:17] LABS: Glucose - Point of Care 153 mg/dl (70-99)
[2024-01-23] MEDS: ARICEPT 10 MG PO (21:17)
[2024-01-23] MEDS: TYLENOL 650 MG PO (21:18)
[2024-01-23] MEDS: LANTUS 0.18 UNITS SC (21:21)
[2024-01-24] VITALS (7 sets, daily range): BP systolic 119–175; BP diastolic 51–73; PULSE 50; O2SAT 99; BMI 25.4
[2024-01-24 07:26] LABS: % Basophils 0.3 % (0-2); % Eosinophils 3.4 % (0-6); % Immature Granulocytes 0.4 % (0-0.5); % Lymphocytes 15.5 % (20.5-51.1); % Monocytes 7.6 % (1.7-9.3); % Neutrophils 72.8 % (42.2-75.2); Absolute Eosinophils 0.2 10^3/uL (0-0.7); Absolute Lymphocytes 1.1 10^3/uL (1.2-3.4); Absolute Monocytes 0.5 10^3/uL (0.1-0.6); Hematocrit 32.9 % (37.0-47.0); Hemoglobin 10.3 g/dL (12.0-16.0); Mean Corp Hgb Conc. 31.3 g/dL (33.0-37.0); Mean Corpuscular Hgb 28.2 pg (27.0-31.0); Mean Corpuscular Volume 90.1 fL (81.0-99.0); Mean Platelet Volume 9.5 fL (7.4-10.4); Nucleated Red Blood Cells % 0 %; Platelet Count 272 10^3/uL (130-400); Red Blood Cell Count 3.65 10^6/uL (4.20-5.40); Red Cell Dist. Width 14.2 % (11.5-14.5); White Blood Cell Count 6.9 10^3/uL (4.8-10.8)
--- NOTE | 2024-01-24 07:44 | PTCARENOTE ---
Patient BP's in evening 170's/60's. patient restless and agitated with cuff inflation. [employer], covering unit, informed. To continue monitoring. Next BP 159/64.
[2024-01-24 07:57] LABS: Blood Urea Nitrogen 34 mg/dl (7-17); Calcium 8.4 mg/dl (8.4-10.2); Carbon Dioxide 27 mmol/L (22-30); Chloride 105 mmol/L (98-107); Estimated Creatinine Clearance 34 ml/min; Glucose 33 mg/dl (70-99); Potassium 3.7 mmol/L (3.5-5.1); Sodium 140 mmol/L (135-145); eGFR 54.53
[2024-01-24 08:01] LABS: Glucose - Point of Care 41 mg/dl (70-99)
[2024-01-24 08:32] LABS: Glucose - Point of Care 55 mg/dl (70-99)
[2024-01-24 08:39] LABS: Glucose - Point of Care 85 mg/dl (70-99)
[2024-01-24] MEDS: NOVOLOG FLEXPEN-MODERATE RESISTANCE SC (09:39)
[2024-01-24] MEDS: ASPIR LOW (ENTERIC COATED) 81 MG PO (09:40)
[2024-01-24] MEDS: FEOSOL 325 MG PO (09:41)
[2024-01-24] MEDS: HYDROPHOR 1 APPLIC TOPICAL (09:41)
[2024-01-24] MEDS: LOPRESSOR 12.5 MG PO ×2 (09:41→20:42)
--- NOTE | 2024-01-24 10:47 | W.PN.HOSP.TC ---
Today's Communication/Plan
-
low dose Hydralazine BID to start
continue lower dose Metoprolol; monitor BP/tele
resume Lasix 20mg daily now
reduce Lantus
Assessment / Plan
Assessment / Plan
Impression.
87 years old who admitted for bilateral lower extremity cellulitis developed shortness of breath last night, seen by infectious disease, discontinued antibiotic and recommend treatment for CHF.
Assessment/plan
Acute on chronic diastolic congestive heart failure
Patient presented with shortness of breath.
BNP level is elevated at 3610
- s/p IV Lasix course; now resume PO Lasix as Creatinine improved
Continue Daily weight.
Continue strict I's and O's.
Cardiology signed off
Repeat echo with preserved EF
Atrial fibrillation with rapid ventricular rate.
hx of pAF
reduced dose of metoprolol to 12.5 BID due to hypotension <3 sec pauses on tele. monitor tele/BP
- not on AC due to falls, continue aspirin 81
Cellulitis ruled out.
- On abx since 01/07. History says doxycycline then linezolid started today. Extensive erythema in the legs with induration and tenderness to palpation. Nails and some skin excoriations possibly source. No obvious ulcerations or evidence of deep
tissue infection.
Seen by infectious disease.
Recommend to discontinue IV antibiotic
- bilateral LE u/s neg for DVT
ANA on CKD 3a suspect likely secondary to diuresis
Monitor
Creatinine 1.1 today, monitor
Bladder scan
History of diabetes mellitus
Continue home medication
lantus 18 hs but AM hypoglycemia; reduce to 14 units
Insulin sliding scale
Diabetic diet
Hemoglobin A1c 8.7 last year
Essential HTN
- Norvasc stopped d/t concern for edema
- start hydralazine BID low dose
- continue BID Lopressor; monitor tele
- resume Lasix 20mg daily
Dementia
- continue donepezil
Code status - DNR
DVT prophylaxis: Heparin
Anticipated Discharge: > 48 hours
Subjective/Interval History
-
Date of Service: January 24, 2024
No complaints
Objective Data
-
Labs:
Laboratory Results
01/24/24
06:19
WBC 6.9
Hgb 10.3 L
Hct 32.9 L
Plt Count 272
Sodium 140
Potassium 3.7
Chloride 105
Carbon Dioxide 27
BUN 34 H
Creatinine 1.0
Glucose 33 L*
Calcium 8.4
Vital Signs:
Vital Signs
Temp Pulse Resp BP Pulse Ox
97.5 F 64 18 175/73 95
01/24/24 08:38 01/24/24 08:38 01/24/24 08:38 01/24/24 08:38 01/24/24 08:38
I&O
01/23/24 01/24/24 01/25/24
06:59 06:59 06:59
Intake Total 1080 / 1080 120 / 120
Balance 1080 / 1080 120 / 120
Physical Exam
-
General: No Apparent Distress
HEENT: Normocephalic and Atraumatic
Respiratory: Negative Wheezes
Cardiac: Regular Rhythm and S1/S2
GI: Soft
Musculoskeletal: No Edema
Neuro: AO x 3
Hematologic / Lymphatic: No Lymphadenopathy
Psych: Calm
Data Reviewed
-
Total Time Spent with Patient (in minutes): 42
Labs: Labs Reviewed by me
[2024-01-24] MEDS: APRESOLINE 12.5 MG PO ×2 (12:03→20:42)
[2024-01-24 12:24] LABS: Glucose - Point of Care 159 mg/dl (70-99)
[2024-01-24] MEDS: NOVOLOG FLEXPEN-MODERATE RESISTANCE 1 UNITS SC (14:17)
[2024-01-24 16:51] LABS: Glucose - Point of Care 231 mg/dl (70-99)
[2024-01-24] MEDS: NOVOLOG FLEXPEN-MODERATE RESISTANCE 3 UNITS SC (18:10)
[2024-01-24] MEDS: LOVENOX 30 MG SC (18:11)
[2024-01-24 21:06] LABS: Glucose - Point of Care 169 mg/dl (70-99)
[2024-01-24] MEDS: LANTUS 0.14 UNITS SC (23:04)
[2024-01-24] MEDS: ARICEPT 10 MG PO (23:05)
[2024-01-25 03:30] VITALS: BP 169/61
[2024-01-25 03:39] LABS: Glucose - Point of Care 112 mg/dl (70-99)
[2024-01-25 05:56] VITALS: BMI 25.7
[2024-01-25 07:24] LABS: Glucose - Point of Care 70 mg/dl (70-99)
[2024-01-25 07:30] VITALS: BP 165/57
[2024-01-25] MEDS: NOVOLOG FLEXPEN-MODERATE RESISTANCE SC (08:58)
[2024-01-25] MEDS: LOPRESSOR 12.5 MG PO (09:01)
[2024-01-25] MEDS: APRESOLINE 12.5 MG PO (09:01)
[2024-01-25] MEDS: FEOSOL 325 MG PO (09:01)
[2024-01-25] MEDS: ASPIR LOW (ENTERIC COATED) 81 MG PO (09:01)
[2024-01-25] MEDS: LASIX 20 MG PO (09:01)
[2024-01-25] MEDS: HYDROPHOR 1 APPLIC TOPICAL (09:02)
[2024-01-25 09:18] LABS: Blood Urea Nitrogen 37 mg/dl (7-17); Calcium 8.5 mg/dl (8.4-10.2); Carbon Dioxide 28 mmol/L (22-30); Chloride 105 mmol/L (98-107); Estimated Creatinine Clearance 26 ml/min; Glucose 65 mg/dl (70-99); Potassium 4.2 mmol/L (3.5-5.1); Sodium 141 mmol/L (135-145)
[2024-01-25 11:30] VITALS: BP 118/49
[2024-01-25 11:43] LABS: Glucose - Point of Care 160 mg/dl (70-99)
[2024-01-25] MEDS: NOVOLOG FLEXPEN-MODERATE RESISTANCE 1 UNITS SC ×2 (12:06→16:43)
--- NOTE | 2024-01-25 13:37 | W.DS.TRANS ---
DC Summary - Bioinformatics Analyst
-
Discharge Instructions:
Discharge Diagnosis/Procedures Acute on chronic congestive heart failure
exacerbation
Atrial fibrillation with rapid ventricular rate
Renal insufficiency
Diet As tolerated,Diabetic, Carb Controlled,2 Gram
Sodium,Restrict fluids to 64 oz
Activity As tolerated
Driving Restrictions As prior to admission
Bathing Restrictions None
Blood Work BMP and CBC in 5 days
Specialty Instructions Weigh Daily
Instructions:
Stand-Alone Forms:
Changes to Home Medications: Yes
Discharge Medications:
DC Medications w/original date entered in [facility]
acetaminophen 325 mg tablet (Tylenol) 650 mg PO Q6HPRN PRN fever/mild pain 10/17/22
acetaminophen 500 mg tablet (Tylenol Extra Strength) 500 mg PO HS Pain 10/17/22
bisacodyl 10 mg rectal suppository (Dulcolax (bisacodyl)) 10 mg [place] DAILYPRN PRN if no bm after mom 10/17/22
donepezil 10 mg tablet 10 mg PO HS Neurological Condition 10/17/22
insulin lispro 100 unit/mL subcutaneous pen (Humalog KwikPen (U-100) Insulin) 0 sliding scale dose SC AC Diabetes 10/17/22
magnesium hydroxide 400 mg/5 mL oral suspension (Milk of Magnesia) 2,400 mg PO [id number] PRN if no bm by third day 10/17/22
sodium phosphates 19 gram-7 gram/118 mL enema (Fleet Enema) 118 ml [place] DAILYPRN PRN if no bm after dulcolax 10/17/22
therapeutic multivitamin 1 tab PO DAILY Supplement 10/17/22
ferrous sulfate 325 mg (65 mg iron) tablet (FeroSul) 325 mg PO DAILY 30 days #30 tabs 10/20/22
aspirin 81 mg tablet,delayed release 81 mg PO DAILY 01/17/24
polyethylene glycol 3350 17 gram oral powder packet 17 g PO DAILYPRN PRN constipation #0 ea 01/20/24
white petrolatum 42 % topical ointment (Hydrophor) 1 applic topical DAILY #100 grams 01/20/24
furosemide 20 mg tablet 20 mg PO DAILY #30 tabs 01/25/24
hydralazine 25 mg tablet 12.5 mg (1/2 x 25 mg) PO BID #60 tabs 01/25/24
insulin glargine 100 unit/mL (3 mL) subcutaneous pen (Lantus Solostar U-100 Insulin) 12 unit (0.12 mL) SC HS #0 mL 01/25/24
metoprolol tartrate 25 mg tablet 12.5 mg (1/2 x 25 mg) PO BID #60 tabs 01/25/24
Home Medication Changes
Hydralazine in favor of Amlodipine
Lasix to 20mg
Lopressor 12.5mg BID for AFib
Pending Results: No
Total time spent discharging patient (in min): 42
--- NOTE | 2024-01-25 13:48 | W.PN.HOSP.TC ---
Today's Communication/Plan
-
dc to SNF
Assessment / Plan
Assessment / Plan
Impression.
87 years old who admitted for bilateral lower extremity cellulitis developed shortness of breath last night, seen by infectious disease, discontinued antibiotic and recommend treatment for CHF.
Assessment/plan
Acute on chronic diastolic congestive heart failure
Patient presented with shortness of breath.
BNP level is elevated at 3610
- s/p IV Lasix course; now resume PO Lasix as Creatinine improved
Continue Daily weight.
Continue strict I's and O's.
Cardiology signed off
Repeat echo with preserved EF
Atrial fibrillation with rapid ventricular rate.
hx of pAF
reduced dose of metoprolol to 12.5 BID due to hypotension <3 sec pauses on tele. monitor tele/BP
- not on AC due to falls, continue aspirin 81
Cellulitis ruled out.
- On abx since 01/07. History says doxycycline then linezolid started today. Extensive erythema in the legs with induration and tenderness to palpation. Nails and some skin excoriations possibly source. No obvious ulcerations or evidence of deep
tissue infection.
Seen by infectious disease.
Recommend to discontinue IV antibiotic
- bilateral LE u/s neg for DVT
ANA on CKD 3a suspect likely secondary to diuresis
Monitor
Creatinine 1.1 today, monitor
Bladder scan
History of diabetes mellitus
Continue home medication
lantus 18 hs but AM hypoglycemia; reduce to 12 units
Insulin sliding scale
Diabetic diet
Hemoglobin A1c 8.7 last year
Essential HTN
- Norvasc stopped d/t concern for edema
- start hydralazine BID low dose
- continue BID Lopressor; monitor tele
- resume Lasix 20mg daily
Dementia
- continue donepezil
Code status - DNR
DVT prophylaxis: Heparin
More than 30 minutes spent in discharge including
Final examination of the patient
Summarizing hospital stay
Instructions for continuing care to all relevant caregivers
Preparation of discharge records, prescriptions, and referral forms
Total time spent (in minutes): 42
Anticipated Discharge: Today
Subjective/Interval History
-
Date of Service: January 25, 2024
no complaints
Objective Data
-
Labs:
Laboratory Results
01/25/24
07:50
Sodium 141
Potassium 4.2
Chloride 105
Carbon Dioxide 28
BUN 37 H
Creatinine 1.3 H
Glucose 65 L
Calcium 8.5
Vital Signs:
Vital Signs
Temp Pulse Resp BP Pulse Ox
98.5 F 49 18 118/49 95
01/25/24 11:30 01/25/24 11:30 01/25/24 11:30 01/25/24 11:30 01/25/24 11:30
I&O
01/24/24 01/25/24 01/26/24
06:59 06:59 06:59
Intake Total 120 / 120 120 / 120
Balance 120 / 120 120 / 120
Physical Exam
-
General: No Apparent Distress
HEENT: Normocephalic and Atraumatic
Respiratory: Negative Wheezes
Cardiac: Regular Rhythm and S1/S2
GI: Soft
Musculoskeletal: No Edema
Neuro: AO x 3
Psych: Calm
Data Reviewed
-
Total Time Spent with Patient (in minutes): 42
Labs: Labs Reviewed by me
--- NOTE | 2024-01-25 14:12 | CM ---
Addendum entered by Bia Aleman 01/25/24 14:30:
CM spoke with Susanna's daughter about discharge to [facility] today via ambulance. IMM reviewed via telephone call; she did not want a copy emailed or sent with her mother.
Plan: Return to [facility] today via ambulance transport.
Report: [phone]

Addendum entered by Bia Aleman 01/25/24 14:17:
MARGAUX attempted to contact Susanna's daughter, Alena Mead, to make her aware of her mother's discharge back to [facility] today via ambulance. VM left with my phone number for her to call back. MARGAUX will attempt to review IMM with Alena when she
returns my call.
Original Note:
Plan: Return to [facility] today via ambulance transport.
Report: [phone]
[2024-01-25 15:31] VITALS: BP 149/59
[2024-01-25 16:27] LABS: Glucose - Point of Care 194 mg/dl (70-99)
== END 2024-01-25 18:00 | DRG 291 ==
LOC: 4 EAST ACU 19:47
PROVIDERS: General Practice; Internal Medicine; Nurse Practitioner Gerontology; ADMITTING PHYSICIAN Internal Medicine; ATTENDING PHYSICIAN Internal Medicine; EMERGENCY PHYSICIAN Emergency Medicine; FAMILY PHYSICIAN Student in an Organized Health Care Education/Training Program; OTHER PHYSICIAN Internal Medicine Infectious Disease; OTHER PHYSICIAN Internal Medicine Interventional Cardiology
DX: I13.0 Hypertensive heart and chronic kidney disease with heart failure and stage 1 through stage 4 chronic kidney disease, or unspecified chronic kidney disease (principal); I50.33 Acute on chronic diastolic (congestive) heart failure; F05 Delirium due to known physiological condition; F03.92 Unspecified dementia, unspecified severity, with psychotic disturbance; N17.9 Acute kidney failure, unspecified; E78.00 Pure hypercholesterolemia, unspecified; N18.31 Chronic kidney disease, stage 3a; E11.65 Type 2 diabetes mellitus with hyperglycemia; I48.0 Paroxysmal atrial fibrillation; R22.43 Localized swelling, mass and lump, lower limb, bilateral; E11.22 Type 2 diabetes mellitus with diabetic chronic kidney disease; D64.9 Anemia, unspecified; R29.6 Repeated falls; Z66 Do not resuscitate; Z88.0 Allergy status to penicillin; Z79.82 Long term (current) use of aspirin; Z79.4 Long term (current) use of insulin; Z85.828 Personal history of other malignant neoplasm of skin; Z91.81 History of falling; Z87.891 Personal history of nicotine dependence
CPT/HCPCS: 71045; 80048; 80053; 81003; 81015; 82962; 83605; 83735; 83880; 85025; 85027; 87040; 87641; 93005; 93306; 93970; 94640; 96374; 97163; 99285